=== PATIENT | female | born 1945 | race Caucasian/White ===

== ENCOUNTER 2019-03-27 18:06 | Emergency (ER) | payer MEDICARE, BC ==
[~2019-03-27] VITALS: Ht 160 cm; Wt 62.1 kg
[~2019-03-27 18:06] MED LIST: BUPR75TA3; ESCI10TA; MEMA5TAB
[2019-03-27 18:23] VITALS: BP 144/78
[2019-03-27] MEDS ORDERED: LORA-259 PO (18:35)
[2019-03-27] MEDS ORDERED: MIRT30TA PO (18:35)
[2019-03-27] MEDS ORDERED: ASPI-605 PO (18:35)
[2019-03-27] MEDS ORDERED: QUET25TA PO (18:35)
[2019-03-27] MEDS ORDERED: TRAZ-182 PO (18:35)
[2019-03-27] MEDS ORDERED: LISI10TA5 PO (18:35)
--- NOTE | 2019-03-27 19:10 | NUR ---
Patient discharged to home in stable condition. Written and verbal after care instructions given. Patient verbalizes understanding of instruction.
== END 2019-03-27 19:14 | disposition home or self-care (01) ==
LOC: ER 18:06
DX: G30.9 Alzheimer's disease, unspecified (principal); F02.80 Dementia in other diseases classified elsewhere, unspecified severity, without behavioral disturbance, psychotic disturbance, mood disturbance, and anxiety; R45.1 Restlessness and agitation; Z98.890 Other specified postprocedural states; Z88.0 Allergy status to penicillin; Z79.82 Long term (current) use of aspirin

== ENCOUNTER 2019-07-31 19:08 | Emergency (ER) | payer MEDICARE, BC ==
[~2019-07-31] VITALS: Ht 160 cm; Wt 54.4 kg
[~2019-07-31 19:08] MED LIST changes: +ASPI-605 PO; -BUPR75TA3; -ESCI10TA; +LISI10TA5 PO; +LORA-259 PO; -MEMA5TAB; +MIRT30TA PO; +QUET25TA PO; +TRAZ-182 PO
[2019-07-31 19:14] VITALS: BP 171/87
[2019-07-31] MEDS ORDERED: ACETAMINOPHEN ES 500 MG TABLET PO ONE (20:30)
[2019-07-31] MEDS ORDERED: BACI/NEOM/POLY B OINT PKT 1 UDPKT PACKET TP ONE (20:30)
[2019-07-31] MEDS ORDERED: LIDOCAINE HCL/PF 1% 30 ML VIAL TP ONE (20:30)
[2019-07-31] MEDS ORDERED: TDAP [DIPH/PERTUSSIS/TET] 0.5 ML VIAL IM ONE ×2 (20:30→21:10)
[2019-07-31] MEDS ORDERED: LIDOCAINE HCL/MPF 1% 30 ML VIAL IJ ONE (20:44)
[2019-07-31] MEDS ORDERED: ACETAMINOPHEN ES 500 MG TABLET ONE (21:10)
[2019-07-31] MEDS ORDERED: ACETAMINOPHEN 650 MG/20.3 ML UDC ONE (21:16)
[2019-08-01] MEDS ORDERED: QUET100T PO (14:26)
[2019-08-01] MEDS ORDERED: DIVA500T2 PO (14:26)
== END 2019-07-31 21:51 | disposition home or self-care (01) ==
LOC: ER 19:15
DX: S62.635B Displaced fracture of distal phalanx of left ring finger, initial encounter for open fracture (principal); S70.02XA Contusion of left hip, initial encounter; I10 Essential (primary) hypertension; G30.9 Alzheimer's disease, unspecified; Z88.0 Allergy status to penicillin; Z79.899 Other long term (current) drug therapy; Z79.82 Long term (current) use of aspirin; W18.39XA Other fall on same level, initial encounter; Y93.89 Activity, other specified; Y92.89 Other specified places as the place of occurrence of the external cause; Y99.8 Other external cause status
CPT/HCPCS: 29130; 90471; 90715; 99283; A6403; J3490 ×2; 73140-TC; 73502

== ENCOUNTER 2019-08-01 12:07 | Inpatient (IN) | payer MEDICARE, BC ==
[~2019-08-01] VITALS: Ht 160 cm; Wt 51.3 kg
--- NOTE | 2019-08-01 12:21 | NUR ---
PARKER RA 102 From Home Syncope,N/V "was sitting on cough said eyes rolled back. On arrivel she was vomiting-gave 4mg zofran; PT IS AWAKE, ALERT, DENIES PAIN/DISCOMFRT, PT ON MONITOR, VSS, NAD NOTED. PENDING MD GUZMAN
[2019-08-01] MEDS ORDERED: IV NS 0.9% 1,000 ML BAG IV ONE (13:00)
[2019-08-01 13:11] LABS: BASOPHILS % (AUTO) 0.4 % (0.0-2.0); EOSINOPHILS % (AUTO) 0.5 % (0.0-6.0); HEMATOCRIT 36 % (33-45); HEMOGLOBIN 11.9 g/dL (11.5-14.8); LYMPHOCYTES # (AUTO) 0.8 /CMM (0.8-4.8); LYMPHOCYTES % (AUTO) 9.8 % (20.0-44.0); MEAN CORPUSCULAR HGB CONC 33 g/dl (31.0-36.0); MEAN CORPUSCULAR VOLUME 95 fL (82-100); MONOCYTES # (AUTO) 0.5 /CMM (0.1-1.30); MONOCYTES % (AUTO) 6.4 % (2.0-12.0); NEUTROPHILS % (AUTO) 82.9 % (43.0-81.0); PLATELET COUNT (AUTO) 213 /CMM (150-450); RED BLOOD CELL COUNT(AUTO) 3.77 MIL/uL (4.0-5.2); WHITE BLOOD COUNT (AUTO) 8.5 K/uL (4.3-11.0)
[2019-08-01 13:19] LABS: CALCIUM, SERUM 8.6 mg/dL (8.5-10.1); CARBON DIOXIDE 30 mmol/L (21-32); CHLORIDE 109 mmol/L (98-107); CREATININE 0.8 mg/dL (0.6-1.3); GLUCOSE 90 mg/dL (74-106); POTASSIUM 3.9 mmol/L (3.5-5.1); SODIUM SERUM 146 mmol/L (136-145); UREA NITROGEN, BLOOD 15 mg/dL (7-18)
[2019-08-01 13:24] LABS: ALANINE AMINOTRANSFERASE 16 U/L (12-78); ALBUMIN 3.4 g/dL (3.4-5.0); ALKALINE PHOSPHATASE 70 U/L (46-116); ASPARTATE AMINOTRANSFERASE 18 U/L (15-37); BILIRUBIN,DIRECT 0.2 mg/dL (0.0-0.2); BILIRUBIN,TOTAL 0.7 mg/dL (0.2-1.0); TOTAL PROTEIN, SERUM 6.6 g/dL (6.4-8.2)
--- NOTE | 2019-08-01 13:39 | NUR ---
[employer] JUDGE PAGED
[2019-08-01] MEDS ORDERED: IV NS 0.9% 1,000 ML IV PRN (13:54)
[2019-08-01] MEDS ORDERED: MAGNESIUM HYDROXIDE 30 ML UDC PO PRN (14:00)
[2019-08-01] MEDS ORDERED: MORPHINE SULFATE INJ 2 MG/ML DISP.SYRIN IV PRN (14:00)
[2019-08-01] MEDS ORDERED: HYDROCODONE/APAP 5/325MG 1 EACH TABLET PO PRN (14:00)
[2019-08-01] MEDS ORDERED: ONDANSETRON HCL/PF 4 MG/2 ML VIAL IVP PRN (14:00)
[2019-08-01] MEDS ORDERED: TEMAZEPAM 15 MG CAPSULE PO PRN (14:00)
[2019-08-01] MEDS ORDERED: MAG HYDROX/AL HYDROX/SIMETH 30 ML UDC PO PRN (14:00)
[2019-08-01] MEDS ORDERED: ACETAMINOPHEN 325 MG TABLET PO PRN (14:00)
--- NOTE | 2019-08-01 14:22 | NUR ---
report given to dilma payne for rosanne pt will be transported v ia acls prtocol to [address] [place] [address]
[2019-08-01] MEDS ORDERED: QUET100T PO (14:26)
[2019-08-01] MEDS ORDERED: DIVA500T2 PO (14:26)
[2019-08-01 15:49] VITALS: BP 136/75
[2019-08-01 16:00] VITALS: BP 136/75
--- NOTE | 2019-08-01 16:00 | NUR ---
RAILCAR BRAKE OPERATOR NOTES PATIENT ADMITTED FROM ER FEMALE 73 Y/OLD ON TELE DX OF SYNCOPE. TELE MONITOR ON HR 96, NO ACUTE RESPIRATORY DISTRESS. PATIENT A/O X1 CONFUSED DEFENDING, ANXIOUS, UNABLE TO VERBALIZE SELF. NEXT TO THE BED. PATIENT WAS REFUSED PAIN AT THIS TIME, AND GET IRRITABLE EASILY, AMBULATORY WALKING AROUND. IV ACCESS ON LEFT AC AREA, AND RIGHT HAND INTACT. SKIN ASSESSMENT DONE INTACT, PATIENT CONTINENT ASSIST BATHROOM. PATIENT HAS A WOUND ON LEFT RING FINGER, BECAUSE OF IRRITABLE CONDITION UNABLE TO TAKE A PICTURE. BELONGING AND CONTRABAND CHECKED. V/S TAKEN BP-136/75, P-72, R-18, T-98.2, O2- 98 ROOM AIR. TIMMY DNP AWARE OF NEW PATIENT, AND MEDICATION.
--- NOTE | 2019-08-01 17:10 | NUR ---
RN NOTES PATIENT WAS VERY ANXIOUS, PARANOID, HARD TO FOLLOW DIRECTION, WONDERS OTHER PATIENTS ROOM, LOUD. NOTIFIED TIMMY AND GET ORDER ATIVAN 0.5 MG/ML IV PUSH BID PRN, ORDER TAKEN AND CARRIED OUT.
[2019-08-01] MEDS: QUETIAPINE FUMARATE 25 MG TABLET PO SCH (17:23)
--- NOTE | 2019-08-01 17:23 | NUR ---
rn notes administered Ativan 0.5 mg /ml iv push for anxiety. paranoia, yelling, hard to follow direction, v/s taken bp-136/75, p-72, continued monitoring, also administered scheduled medication as prescribed. next to the bed.
[2019-08-01] MEDS ORDERED: LORAZEPAM 1 MG TABLET PO PRN (17:30)
[2019-08-01] MEDS ORDERED: LORAZEPAM INJ 2 MG/ML VIAL IV PRN (17:30)
[2019-08-01 17:51] LABS: THYROID STIMULATING HORMONE 0.662 uIU/mL (0.358-3.74)
--- NOTE | 2019-08-01 18:30 | NUR ---
RN NOTES PATIENT IN THE SLEEPING, MEDICATION WERE ADMINISTERED FOR ANXIETY EFFECTIVE, INFUSING NS AT 75 ML/HR ON RIGHT HAND INTACT. PATIENT TURN AND REPOSTION SELF IN THE BED, NEXT TO THE BED. ENDORSED ONCOMING NURSE FOLLOW PLAN OF CARE.
[2019-08-01 20:00] VITALS: BP 129/109
--- NOTE | 2019-08-01 20:03 | NUR ---
ARROW POINT ATTACHER OPENING NOTES RECEIVED PT IN BED, AWAKE ALERT ORIENTED X2. BREATHING EVEN AND UNLABORED ON ROOM AIR. BASEBALL INSPECTOR IN PLACE NO COMPLAINT OF PAIN OR DISCOMFORT AT THIS TIME. IV ACCESS ON THE LAC #18 AND R HAND #22G. BED IN LOWEST LOCKED POSITION, CALL LIGHT WITHIN REACH AT ALL TIMES. WILL CONTINUE TO MONITOR FREQUENTLY
[2019-08-02] VITALS: BP 138/80
[2019-08-02 04:00] VITALS: BP 121/67
--- NOTE | 2019-08-02 06:06 | NUR ---
FUNERAL HOME ASSOCIATE CLOSING NOTES PT REMAINS IN BED, SLEEPING, EASILY AROUSED TO NAME CALL. BREATHING EVEN AND UNLABORED ON ROOM AIR. SUPERVISOR PLATE FORMING IN PLACE IN NO APPARENT PAIN OR DISCOMFORT AT THIS TIME. IV ACCESS ON THE LAC #18 AND R HAND #22G. BED IN LOWEST LOCKED POSITION, CALL LIGHT WITHIN REACH AT ALL TIMES. WILL ENDORSE TO DAY NURSE FOR DESHAUN
[2019-08-02 06:17] LABS: BASOPHILS % (AUTO) 0.5 % (0.0-2.0); HEMATOCRIT 32 % (33-45); LYMPHOCYTES # (AUTO) 1.4 /CMM (0.8-4.8); LYMPHOCYTES % (AUTO) 24.9 % (20.0-44.0); MEAN CORPUSCULAR HGB CONC 34 g/dl (31.0-36.0); MEAN CORPUSCULAR VOLUME 94 fL (82-100); MONOCYTES # (AUTO) 0.5 /CMM (0.1-1.30); MONOCYTES % (AUTO) 8.7 % (2.0-12.0); NEUTROPHILS # (AUTO) 3.7 /CMM (1.8-8.9); NEUTROPHILS % (AUTO) 63.9 % (43.0-81.0); PLATELET COUNT (AUTO) 214 /CMM (150-450); RED BLOOD CELL COUNT(AUTO) 3.41 MIL/uL (4.0-5.2); WHITE BLOOD COUNT (AUTO) 5.8 K/uL (4.3-11.0)
[2019-08-02 06:49] LABS: THYROID STIMULATING HORMONE 0.806 uIU/mL (0.358-3.74)
[2019-08-02 06:52] LABS: CALCIUM, SERUM 8.2 mg/dL (8.5-10.1); CREATININE 0.6 mg/dL (0.6-1.3); MAGNESIUM 2.1 mg/dL (1.8-2.4); PHOSPHORUS 3.4 mg/dL (2.5-4.9); POTASSIUM 3.6 mmol/L (3.5-5.1)
--- NOTE | 2019-08-02 07:20 | NUR ---
RN OPENING NOTES PT IS ASLEEP IN BED. RECEIVED REPORT FROM SUPERVISOR SAWING AND ASSEMBLY RN FOR CONTINUATION OF CARE. PT HAS NS RUNNING AT 75 ML/HR IN LEFT HAND. PT IS CONFUSED ACCORDING TO REPORT. BED IS LOCKED AND IN LOWEST POSITION WITH BED ALARM ON. WILL CONTINUE TO MONITOR.
[2019-08-02 08:00] VITALS: BP 135/76
[2019-08-02] MEDS ORDERED: MIRTAZAPINE 15 MG TABLET PO SCH (09:00)
[2019-08-02] MEDS ORDERED: ASPIRIN EC 81 MG TABLET.DR PO SCH (09:00)
[2019-08-02] MEDS: QUETIAPINE FUMARATE 25 MG TABLET PO SCH (09:37)
[2019-08-02] MEDS ORDERED: LORAZEPAM INJ 2 MG/ML VIAL IV ONE (11:00)
--- NOTE | 2019-08-02 12:21 | NUR ---
RN D/C NOTES PT DISCHARGED PAPERWORK GIVEN TO SPOUSE. IV REMOVED AND PT DENIED ANY PAIN OR SOB. REFUSED PHOTOS OR ASSESSMENT OF SKIN SAID HER SKIN IS INTACT. PT CHANGED BACK INTO HER REGULAR CLOTHES WITH THE ASSIST OF SAVANAH RONDON OF DR. MAGDALENO OFFICE GIVEN TO SPOUSE FOR FOLLOW UP. Addendum: 08/02/19 at 1224 by BELLA JUSTIN RN PT TAKEN BY PRIVATE CAR.
== END 2019-08-02 12:20 | disposition home or self-care (01) | DRG 73 ==
LOC: ER 12:08 → TELE 14:08 → MED 08-02 10:31
PROVIDERS: ADMIT Nurse Practitioner Acute Care; ATTEND Nurse Practitioner Acute Care
DX: G90.8 Other disorders of autonomic nervous system (principal); G93.41 Metabolic encephalopathy; G93.40 Encephalopathy, unspecified; E87.0 Hyperosmolality and hypernatremia; F02.80 Dementia in other diseases classified elsewhere, unspecified severity, without behavioral disturbance, psychotic disturbance, mood disturbance, and anxiety; Z79.899 Other long term (current) drug therapy; G30.9 Alzheimer's disease, unspecified; E86.0 Dehydration; I10 Essential (primary) hypertension; F41.9 Anxiety disorder, unspecified; Z79.82 Long term (current) use of aspirin; Z87.891 Personal history of nicotine dependence; Z88.0 Allergy status to penicillin; S62.635A Displaced fracture of distal phalanx of left ring finger, initial encounter for closed fracture; X58.XXXA Exposure to other specified factors, initial encounter; Y92.9 Unspecified place or not applicable
CPT/HCPCS: 36415; 70450-TC; 71045-TC; 73140-TC; 73502; 80048-TC; 80061-TC; 80076-TC; 80164-TC; 82728-TC; 82962-TC; 83540-TC; 83735-TC; 84100-TC; 84439-TC; 84443-TC; 84484-TC; 85025-TC; 85730-TC; 87081-TC; 93307-TC; 97116-TC; 97530-TC; G0378; J2060; J7030

== ENCOUNTER 2021-07-09 05:30 | Emergency (ER) | payer MEDICARE, BC ==
[~2021-07-09] VITALS: Ht 157.5 cm; Wt 59.0 kg
[~2021-07-09 05:30] MED LIST changes: +DIVA500T2 PO; +LISI10TA29 PO; -LISI10TA5 PO; +MIRT-119 PO; -MIRT30TA PO; +QUET100T PO; -TRAZ-182 PO
--- NOTE | 2021-07-09 05:50 | NUR ---
PT BIBRA 99 FROM HOME FOR C/O HEAD LACERATION S/P SLIP AND FALL. UNKNOWN KO. PT ALERT ORIENTED X1.
--- NOTE | 2021-07-09 06:18 | NUR ---
PT GOING TO CT.
[2021-07-09] MEDS ORDERED: TDAP [DIPH/PERTUSSIS/TET] 0.5 ML VIAL IM ONE ×2 (06:22→06:30)
--- NOTE | 2021-07-09 06:25 | NUR ---
PT BACK FROM CT.
[2021-07-09 07:46] VITALS: BP 117/52
== END 2021-07-09 07:46 | disposition home or self-care (01) ==
LOC: ER 05:32
DX: S01.01XA Laceration without foreign body of scalp, initial encounter (principal); R51.9 Headache, unspecified; F03.90 Unspecified dementia, unspecified severity, without behavioral disturbance, psychotic disturbance, mood disturbance, and anxiety; I10 Essential (primary) hypertension; Z98.890 Other specified postprocedural states; Z88.0 Allergy status to penicillin; Z79.82 Long term (current) use of aspirin; Z79.899 Other long term (current) drug therapy; W01.0XXA Fall on same level from slipping, tripping and stumbling without subsequent striking against object, initial encounter; Y93.89 Activity, other specified; Y92.89 Other specified places as the place of occurrence of the external cause; Y99.8 Other external cause status
CPT/HCPCS: 70450-TC; 90715

== ENCOUNTER 2021-09-16 01:48 | Inpatient (IN) | payer MEDICARE, BC ==
[~2021-09-16] VITALS: Ht 167.6 cm; Wt 74.8 kg
--- NOTE | 2021-09-16 02:05 | NUR ---
BIBRA 102 FROM HOME C/O ABDOMINAL PAIN X2 DAYS -N/V. PT CHANGED INTO A GOWN AND PLACED ON THE MONITOR ALL VITALS STABLE. MD WAS AT BEDSIDE FOR EVAL.
[2021-09-16 02:23] LABS: BILIRUBIN,URINE Negative (NEGATIVE); COLOR,URINE YELLOW (YELLOW); LEUKOCYTE ESTERASE ,URINE Negative (NEGATIVE); NITRITE, URINE Negative (NEGATIVE); PH,URINE 5.5 (5.0-8.0); PROTEIN,URINE 30 mg/dl (NEGATIVE); UGLUCOSE Negative (NEGATIVE); UROBILINOGEN,URINE 0.2 EU/dL (0.2)
[2021-09-16 02:55] LABS: BACTERIA,URINE Few /HPF (None Seen); CALCIUM OXALATE CRYSTALS,UR Few /HPF (None Seen); HYALINE CASTS, URINE Few /LPF (None Seen); SQUAMOUS EPITHELIAL CELL,UR Many /HPF (None Seen)
[2021-09-16 02:56] LABS: MUCUS,URINE Moderate /LPF (None Seen)
--- NOTE | 2021-09-16 03:00 | NUR ---
PT TAKEN TO AND RETURNED FROM CT
[2021-09-16 03:19] LABS: PLATELET COUNT (AUTO) 186 K/uL (150-450)
[2021-09-16 03:44] LABS: CALCIUM, SERUM 8.6 mg/dL (8.5-10.1); CARBON DIOXIDE 24 mmol/L (21-32); CHLORIDE 110 mmol/L (98-107); CREATININE 0.9 mg/dL (0.6-1.3); GLUCOSE 95 mg/dL (74-106); POTASSIUM 3.8 mmol/L (3.5-5.1); SODIUM SERUM 147 mmol/L (136-145); UREA NITROGEN, BLOOD 18 mg/dL (7-18)
[2021-09-16 03:46] LABS: WHITE BLOOD COUNT (AUTO) 6.9 K/uL (4.3-11.0)
[2021-09-16 03:47] LABS: BASOPHILS % (AUTO) 0.4 % (0.0-2.0); EOSINOPHILS % (AUTO) 0.9 % (0.0-6.0); HEMATOCRIT 38 % (33-45); HEMOGLOBIN 12.9 g/dL (11.5-14.8); LYMPHOCYTES # (AUTO) 1.2 K/uL (0.8-4.8); LYMPHOCYTES % (AUTO) 17.7 % (20.0-44.0); MEAN CORPUSCULAR HGB CONC 34 g/dl (31.0-36.0); MEAN CORPUSCULAR VOLUME 95 fL (82-100); MONOCYTES % (AUTO) 8.6 % (2.0-12.0); NEUTROPHILS % (AUTO) 72.4 % (43.0-81.0); RED BLOOD CELL COUNT(AUTO) 4.01 MIL/uL (4.0-5.2)
[2021-09-16 03:48] LABS: MONOCYTES # (AUTO) 0.6 K/uL (0.1-1.30)
[2021-09-16 03:50] LABS: ALANINE AMINOTRANSFERASE 24 U/L (12-78); ALBUMIN 3.2 g/dL (3.4-5.0); ALKALINE PHOSPHATASE 59 U/L (46-116); ASPARTATE AMINOTRANSFERASE 25 U/L (15-37); BILIRUBIN,DIRECT 0.1 mg/dL (0.0-0.2); BILIRUBIN,TOTAL 0.3 mg/dL (0.2-1.0); LIPASE 134 U/L (73-393); TOTAL PROTEIN, SERUM 6.5 g/dL (6.4-8.2)
[2021-09-16 04:00] LABS: OCCULT BLOOD STOOL POSITIVE (NEGATIVE)
--- NOTE | 2021-09-16 04:48 | NUR ---
[facility]SA SWAB COLLECTED AND SENT TO LAB. PATIENT'S BELONGINGS LIST DONE.
--- NOTE | 2021-09-16 04:56 | NUR ---
COVID SWAB DONE AND SENT TO LAB
--- NOTE | 2021-09-16 05:33 | NUR ---
PT SLEEPING COMOFRTABLY BREATHING EVEN AND UNLABORED EASILY AROUSABLE. ON MONITOR AND ALL VSS.
--- NOTE | 2021-09-16 05:58 | NUR ---
CALLED NURSING SUP FOR BED
--- NOTE | 2021-09-16 08:16 | NUR ---
ROOM 322-2
--- NOTE | 2021-09-16 08:40 | NUR ---
RN NOTES PATIENT TRANSFERRED TO UNIT AT ROOM 322-2 VIA [place], ACCOMPANIED BY 2 ER NURSES.
--- NOTE | 2021-09-16 08:45 | NUR ---
RN NOTES ADMITTED THIS 75-YEAR-OLD FEMALE FROM HOME UNDER THE SERVICES OF BRADY CARNES NP; ADMITTING DIAGNOSIS OF ACUTE COLITIS AND PAST MEDICAL HX OF ADVANCED ALZHEIMER'S DISEASE, DEMENTIA, HTN, DEPRESSION, AND ANXIETY. PATIENT IS A/O X1, CONFUSED, ABLE TO BE REDIRECTED. BREATHING EVEN AND UNLABORED ON ROOM AIR, NO ACUTE DISTRESS. ADMITTED MS PATIENT. IV LINE ON LAC #20 INTACT AND PATENT. IVF AND IV ATB INITIATED, TOLERATED BY PATIENT. ASSISTED W/ MEAL IN AM. ORIENTED PATIENT TO ROOM AND USE OF CALL LIGHT BUTTON FOR STAFF ASSISTANCE. WILL CONTINUE TO MONITOR.
--- NOTE | 2021-09-16 10:50 | NUR ---
RN NOTES BRADY CARNES NP, AT BEDSIDE TO SEE THE PATIENT. OSCAR, FAMILY, AT BEDSIDE WELL.
[2021-09-16] MEDS ORDERED: ONDANSETRON HCL/PF 4 MG/2 ML VIAL IVP PRN (11:00)
[2021-09-16] MEDS ORDERED: LEVOFLOXACIN 500 MG /D5W 100ML 500 MG in PREMIX 1 EA IV SCH (11:00)
[2021-09-16] MEDS ORDERED: IV NS 0.9% 1,000 ML IV PRN (11:00)
[2021-09-16] MEDS ORDERED: MORPHINE SULFATE INJ 2 MG/ML DISP.SYRIN IV PRN (11:00)
[2021-09-16] MEDS ORDERED: Z GUARD REMEDY 2 OZ OINT TP PRN (11:00)
[2021-09-16] MEDS ORDERED: ENOXAPARIN SODIUM 40 MG/0.4 ML DISP.SYRIN SQ SCH (11:00)
[2021-09-16] MEDS ORDERED: IV D5W 1,000 ML IV PRN (11:30)
[2021-09-16] MEDS ORDERED: IV NS 0.9% 1,000 ML IV ONE (11:30)
[2021-09-16 12:00] VITALS: BP 136/72
[2021-09-16] MEDS: DIVALPROEX SODIUM 125 MG TABLET.DR PO SCH ×2 (12:02→16:42)
[2021-09-16] MEDS: ASPIRIN EC 81 MG TABLET.DR PO SCH (12:03)
[2021-09-16] MEDS: QUETIAPINE FUMARATE 25 MG TABLET PO SCH (12:03)
[2021-09-16] MEDS: MIRTAZAPINE 15 MG TABLET PO SCH (12:03)
[2021-09-16] MEDS: LISINOPRIL (10MG) 10 MG TABLET PO SCH (12:03)
[2021-09-16] MEDS: CEFTRIAXONE 1 G in IV D5W 50 ML IV SCH (12:04)
[2021-09-16] MEDS: METRONIDAZOLE 500MG/ NS 100ML 500 MG in PREMIX 1 EA IV SCH ×2 (13:21→21:07)
--- NOTE | 2021-09-16 14:13 | NUR ---
RN NOTES OSCAR, , AT BEDSIDE AND MADE AWARE OF PLAN OF CARE FOR PATIENT.
[2021-09-16 16:00] VITALS: BP 150/68
--- NOTE | 2021-09-16 19:00 | NUR ---
RN NOTES PATIENT RESTING IN BED, EYES CLOSED, ABLE TO BE AWAKENED. NOT IN ACUTE DISTRESS. BREATHING EVEN AND UNLABORED, TOLERATING ROOM AIR. A/O X1, CONFUSED, REDIRECTABLE. IV LINE INTACT AND PATENT, IVF INFUSING WELL. ASSISTED W/ MEALS DURING THE DAY. SAFETY MEASURES MAINTAINED. WILL ENDORSE TO AMMONIA REFRIGERATION WORKER RN FOR DESHAUN.
--- NOTE | 2021-09-16 19:24 | NUR ---
RN NOTES PATIENT RESTING IN BED, EYES CLOSED, ABLE TO BE AWAKENED. NOT IN ACUTE DISTRESS. BREATHING EVEN AND UNLABORED, TOLERATING ROOM AIR. A/O X1, CONFUSED, REDIRECTABLE. IV LINE INTACT AND PATENT, IVF INFUSING WELL. SAFETY MEASURES MAINTAINED. AT BEDSIDE. WILL CONTINUE TO MONITOR.
[2021-09-16 20:00] VITALS: BP 153/87
[2021-09-16] MEDS: QUETIAPINE FUMARATE 100 MG TABLET PO SCH (21:03)
[2021-09-17] MEDS: METRONIDAZOLE 500MG/ NS 100ML 500 MG in PREMIX 1 EA IV SCH (04:09)
--- NOTE | 2021-09-17 06:37 | NUR ---
RN NOTES PATIENT RESTING IN BED, EYES CLOSED, ABLE TO BE AWAKENED. NOT IN ACUTE DISTRESS. BREATHING EVEN AND UNLABORED, TOLERATING ROOM AIR. A/O X1, CONFUSED, REDIRECTABLE. IV LINE INTACT AND PATENT ON D5 @ 75ML/HR INFUSING WELL. SAFETY MEASURES MAINTAINED. PT DOES NOT HAVE A FEVER AT THIS TIME 98.3 F. WILL ENDORSE CARE TO DAY SHIFT NURSE.
[2021-09-17 06:54] LABS: BASOPHILS % (AUTO) 0.2 % (0.0-2.0); EOSINOPHILS % (AUTO) 0.2 % (0.0-6.0); HEMATOCRIT 36 % (33-45); HEMOGLOBIN 12.2 g/dL (11.5-14.8); LYMPHOCYTES # (AUTO) 1.7 K/uL (0.8-4.8); LYMPHOCYTES % (AUTO) 13.1 % (20.0-44.0); MEAN CORPUSCULAR HGB CONC 33 g/dl (31.0-36.0); MEAN CORPUSCULAR VOLUME 95 fL (82-100); MONOCYTES # (AUTO) 0.8 K/uL (0.1-1.30); MONOCYTES % (AUTO) 6.5 % (2.0-12.0); NEUTROPHILS # (AUTO) 10.3 K/uL (1.8-8.9); PLATELET COUNT (AUTO) 160 K/uL (150-450); RED BLOOD CELL COUNT(AUTO) 3.82 MIL/uL (4.0-5.2); WHITE BLOOD COUNT (AUTO) 12.8 K/uL (4.3-11.0)
[2021-09-17 07:15] LABS: CALCIUM, SERUM 7.7 mg/dL (8.5-10.1); CREATININE 0.6 mg/dL (0.6-1.3); MAGNESIUM 1.9 mg/dL (1.8-2.4); PHOSPHORUS 2.8 mg/dL (2.5-4.9); POTASSIUM 3.4 mmol/L (3.5-5.1)
[2021-09-17] MEDS: PANTOPRAZOLE 40 MG TABLET.DR PO SCH (07:37)
--- NOTE | 2021-09-17 07:38 | NUR ---
MS RN OPENING NOTES RECEIVED PATIENT IN BED, AWAKE, A&O X 1, NOTED WITH PERIODS OF CONFUSION. ON ROOM AIR TOLERATING WELL, NO SOB, NOT IN ANY FORM OF ACUTE DISTRESS NOTED. IV ACCESS ON LAC G#20 , PATENT AND FLUSHES WELL. NO S/SX OF PAIN NOTED. SAFETY PRECAUTIONS IN PLACE: BED ON LOWEST LOCKED POSITION. SIDE RAILS UP X 2, KEPT CALL LIGHT WITHIN EASY REACH. WILL CONTINUE TO MONITOR ACCORDINGLY.
[2021-09-17 08:00] VITALS: BP 124/57
[2021-09-17] MEDS: DIVALPROEX SODIUM 125 MG TABLET.DR PO SCH ×2 (08:07→16:04)
[2021-09-17] MEDS: MIRTAZAPINE 15 MG TABLET PO SCH (08:08)
[2021-09-17] MEDS: QUETIAPINE FUMARATE 25 MG TABLET PO SCH (08:08)
[2021-09-17] MEDS: LISINOPRIL (10MG) 10 MG TABLET PO SCH (08:08)
[2021-09-17] MEDS: ASPIRIN EC 81 MG TABLET.DR PO SCH (08:08)
[2021-09-17] MEDS ORDERED: ENOXAPARIN SODIUM 40 MG/0.4 ML DISP.SYRIN SQ SCH (09:00)
[2021-09-17] MEDS ORDERED: POTASSIUM CHLORIDE 20 MEQ TAB.PRT.SR PO SCH (09:30)
[2021-09-17 10:00] VITALS: BP 124/57
[2021-09-17] MEDS: CEFTRIAXONE 1 G in IV D5W 50 ML IV SCH (10:11)
[2021-09-17] MEDS: IV D5/0.45 NACL 1,000 ML IV SCH (11:51)
[2021-09-17] MEDS: METRONIDAZOLE 500 MG TABLET PO SCH ×2 (12:12→21:03)
[2021-09-17] MEDS: ACETAMINOPHEN 325 MG TABLET PO PRN (13:06)
[2021-09-17] MEDS: LORAZEPAM 1 MG TABLET PO PRN ×2 (13:12→16:56)
--- NOTE | 2021-09-17 13:20 | NUR ---
RN NOTES PATIENT NOTED WITH CONFUSION AND STARTED GETTING HYSTERICAL. PATIENT WAS SHOUTING AT AND TRIED KICKING NURSES WHILE GETTING OUT OF BED. TRIED TO GIVE ATIVAN 5 MG TABLET BUT PATIENT SPIT IT OUT. INFORMED BRADY CARNES WITH ORDER MADE AND CARRIED OUT. ATIVAN 0.5 MG IM GIVEN ORDERED. WILL CONTINUE TO MONITOR.
[2021-09-17] MEDS ORDERED: LORAZEPAM INJ 2 MG/ML VIAL IM/IV ONE (13:30)
--- NOTE | 2021-09-17 14:16 | NUR ---
RN NOTES PATIENT STILL ACTING OUT, INFORMED BRADY CARNES, ORTIZ- PSYCH EVAL ORDERED.
[2021-09-17] MEDS ORDERED: diphenhydrAMINE HCL 50 MG/ML VIAL IM/IV ONE (15:00)
--- NOTE | 2021-09-17 18:23 | NUR ---
MS RN CLOSING NOTES PATIENT IN BED, ASLEEP,EASILY AWAKEN BY VERBAL AND TACTILE STIMULI. ON ROOM AIR TOLERATING WELL, NO SOB, NOT IN ANY FORM OF ACUTE DISTRESS NOTED. IV ACCESS ON RIGHT WRIST G#20 , PATENT AND INTACT, ONGOING IVF OD D5 1/2 NS AT 75CC/HR INFUSING WELL, NO S/SX OF INFILTRATION NOTED. NO S/SX OF PAIN NOTED. SAFETY PRECAUTIONS IN PLACE: BED ON LOWEST LOCKED POSITION. SIDE RAILS UP X 2, KEPT CALL LIGHT WITHIN EASY REACH. ALL NEEDS ATTENDED AND MET, DUE MEDS GIVEN ORDERED. WILL ENDORSE TO ONCOMING SHIFT FOR DESHAUN.
--- NOTE | 2021-09-17 19:40 | NUR ---
MS RN OPENING NOTES PATIENT SEEK AWAKE IN BED RESTING. PATIENT'S ALERT AND ORIENTED X1 AND IS CONFUSED. PATIENT'S STABLE ON ROOM AIR. IV ACCESS NOTED ON R WRIST GAUGE #20 WHICH IS INTACT, PATENT, AND FLUSHING WELL. PATIENT'S IN NO ACUTE DISTRESS AT THIS TIME. SAFETY MEASURES IN PLACE: BED LOCKED, BED ALARM ON, SIDE RAILS UP X3, CALL LIGHT WITHIN REACH OF THE PATIENT, AND A 1:1 SITTER AT BEDSIDE. WILL CONTINUE TO MONITOR PATIENT.
[2021-09-17 20:00] VITALS: BP 113/50
[2021-09-17] MEDS: QUETIAPINE FUMARATE 100 MG TABLET PO SCH (21:03)
[2021-09-18] MEDS: IV D5/0.45 NACL 1,000 ML IV SCH ×2 (02:12→15:01)
[2021-09-18] MEDS: METRONIDAZOLE 500 MG TABLET PO SCH ×3 (05:01→21:39)
[2021-09-18] MEDS: LORAZEPAM 1 MG TABLET PO PRN ×2 (05:01→19:46)
--- NOTE | 2021-09-18 05:01 | NUR ---
MS RN NOTES PATIENT C/O OF ANXIETY AT THIS TIME. PATIENT WAS GIVEN 1MG OF ATIVAN PO. WILL CONTINUE TO MONITOR THE PATIENT.
--- NOTE | 2021-09-18 06:53 | NUR ---
MS RN CLOSING NOTES PATIENT WAS SEEN SLEEPING IN BED. PATIENT'S ALERT AND ORIENTED X1 AND CONFUSED. PATIENT'S STABLE ON ROOM AIR. IV ACCESS NOTED ON R WRIST GAUGE #20 WHICH IS RUNNING D5 0.45% NS AT 75ML/HR. PATIENT'S IN NO ACUTE DISTRESS AT THIS TIME. SAFETY MEASURES IN PLACE: BED LOCKED, BED ALARM ON, SIDE RAILS UP X3, CALL LIGHT WITHIN REACH OF THE PATIENT, AND A 1:1 SITTER AT BEDSIDE. WILL ENDORSE CARE TO THE DAY SHIFT NURSE.
--- NOTE | 2021-09-18 06:54 | NUR ---
MS RN NOTES PATIENT REFUSED 0600 LAB DRAW DT WANTING TO SLEEP. LAB WILL REATTEMPT TO COLLECT LABS AT A LATER TIME TODAY.
--- NOTE | 2021-09-18 07:49 | NUR ---
RN OPENING NOTES Patient seen comfortably lying in bed, no SOB, no apparent distress noted, breathing even and unlabored. Call light left within reach, safety precautions in place, brakes locked, side rails up X 2, will monitor closely for any changes.
[2021-09-18 08:00] VITALS: BP 104/56
[2021-09-18] MEDS: LISINOPRIL (10MG) 10 MG TABLET PO SCH (09:00)
[2021-09-18] MEDS: QUETIAPINE FUMARATE 25 MG TABLET PO SCH (10:10)
[2021-09-18] MEDS: PANTOPRAZOLE 40 MG TABLET.DR PO SCH (10:10)
[2021-09-18] MEDS: ASPIRIN EC 81 MG TABLET.DR PO SCH (10:10)
[2021-09-18] MEDS: MIRTAZAPINE 15 MG TABLET PO SCH (10:10)
[2021-09-18] MEDS: DIVALPROEX SODIUM 125 MG TABLET.DR PO SCH ×2 (10:18→16:15)
[2021-09-18] MEDS: CEFTRIAXONE 1 G in IV D5W 50 ML IV SCH (11:36)
[2021-09-18 12:41] LABS: BASOPHILS % (AUTO) 0.4 % (0.0-2.0); EOSINOPHILS % (AUTO) 2.6 % (0.0-6.0); HEMATOCRIT 33 % (33-45); HEMOGLOBIN 11.3 g/dL (11.5-14.8); LYMPHOCYTES # (AUTO) 1.5 K/uL (0.8-4.8); LYMPHOCYTES % (AUTO) 18.4 % (20.0-44.0); MEAN CORPUSCULAR HGB CONC 34 g/dl (31.0-36.0); MEAN CORPUSCULAR VOLUME 95 fL (82-100); MONOCYTES # (AUTO) 0.5 K/uL (0.1-1.30); MONOCYTES % (AUTO) 6.1 % (2.0-12.0); NEUTROPHILS # (AUTO) 6.1 K/uL (1.8-8.9); NEUTROPHILS % (AUTO) 72.5 % (43.0-81.0); PLATELET COUNT (AUTO) 178 K/uL (150-450); WHITE BLOOD COUNT (AUTO) 8.4 K/uL (4.3-11.0)
[2021-09-18 12:52] LABS: CALCIUM, SERUM 7.7 mg/dL (8.5-10.1); CREATININE 0.6 mg/dL (0.6-1.3); MAGNESIUM 2.2 mg/dL (1.8-2.4); POTASSIUM 3.4 mmol/L (3.5-5.1)
[2021-09-18 16:00] VITALS: BP 119/66
[2021-09-18] MEDS ORDERED: POTASSIUM CHLORIDE 20 MEQ TAB.PRT.SR PO ONE (16:30)
--- NOTE | 2021-09-18 18:25 | NUR ---
RN CLOSING NOTES Patient in bed, AO X 1, with episodes of forgetfulness and confusion, reorientation provided as needed, no apparent distress noted, no SOB, respirations even and unlabored, no dizziness, no palpitations, denies any pain or discomfort. Due medications given per MD order, tolerating well. Aspiration precautions observed, frequent visual checks rendered, frequent repositioning done, all needs anticipated, kept clean and dry, call light left within reach, safety precautions in place, patient has a 1:1 sitter at bedside, brakes locked, side rails up X 2, will endorse to next shift for continuity of care.
[2021-09-18] MEDS: ACETAMINOPHEN 325 MG TABLET PO PRN (19:48)
--- NOTE | 2021-09-18 19:57 | NUR ---
RN OPENING NOTES PT AWAKE IN BED, VERBAL, CONFUSED, ANXIOUS, RESTLESS, AGITATED, YELLING OUT. UNABLE TO REDIRECT. SITTER IN ROOM FOR SAFETY. GIVEN ATIVAN 1MG PO ORDERED. MADE COMFORTABLE IN BED. SAFETY MEASURES IN PLACE. WILL CONT TO MONITOR.
[2021-09-18 20:52] VITALS: BP 131/68
[2021-09-18] MEDS ORDERED: HALOPERIDOL LACTATE INJ 5 MG/ML VIAL IM PRN (21:30)
[2021-09-18] MEDS: HALOPERIDOL 1 MG TABLET PO SCH (21:39)
[2021-09-19] MEDS: METRONIDAZOLE 500 MG TABLET PO SCH ×2 (05:29→12:12)
--- NOTE | 2021-09-19 06:55 | NUR ---
RN CLOSING NOTES PT RESTING IN BED, EASILY AROUSABLE TO STIMULI. VERBAL/CONFUSED/CALM AT THIS TIME. REORIENTATION PROVIDED. NO S/S OF PAIN NOTED. NO ACUTE EVENTS DURING THE NIGHT. SITTER AT BEDSIDE. ALL NEEDS ATTENDED TO. SAFETY MEASURES MAINTAINED.
--- NOTE | 2021-09-19 07:40 | NUR ---
RN OPENING NOTES Patient seen comfortably lying in bed, no apparent distress noted, respirations even and unlabored, no SOB, no grimacing noted. Call light left within reach, safety precautions in place, brakes locked, side rails up X 2, will monitor closely for any changes.
[2021-09-19] MEDS: ASPIRIN EC 81 MG TABLET.DR PO SCH (08:56)
[2021-09-19] MEDS: DIVALPROEX SODIUM 125 MG TABLET.DR PO SCH (08:56)
[2021-09-19] MEDS: MIRTAZAPINE 15 MG TABLET PO SCH (08:56)
[2021-09-19] MEDS: HALOPERIDOL 1 MG TABLET PO SCH ×2 (08:56→12:12)
[2021-09-19] MEDS: PANTOPRAZOLE 40 MG TABLET.DR PO SCH (08:56)
[2021-09-19 08:57] VITALS: BP 150/83
[2021-09-19] MEDS: LISINOPRIL (10MG) 10 MG TABLET PO SCH (08:57)
[2021-09-19 09:36] LABS: BASOPHILS % (AUTO) 0.5 % (0.0-2.0); HEMATOCRIT 36 % (33-45); HEMOGLOBIN 11.9 g/dL (11.5-14.8); LYMPHOCYTES # (AUTO) 1.3 K/uL (0.8-4.8); LYMPHOCYTES % (AUTO) 18.4 % (20.0-44.0); MEAN CORPUSCULAR HGB CONC 33 g/dl (31.0-36.0); MEAN CORPUSCULAR VOLUME 95 fL (82-100); MONOCYTES # (AUTO) 0.5 K/uL (0.1-1.30); NEUTROPHILS # (AUTO) 4.8 K/uL (1.8-8.9); NEUTROPHILS % (AUTO) 71.1 % (43.0-81.0); PLATELET COUNT (AUTO) 195 K/uL (150-450); RED BLOOD CELL COUNT(AUTO) 3.76 MIL/uL (4.0-5.2); WHITE BLOOD COUNT (AUTO) 6.8 K/uL (4.3-11.0)
[2021-09-19 09:48] LABS: CALCIUM, SERUM 7.8 mg/dL (8.5-10.1); CREATININE 0.8 mg/dL (0.6-1.3); MAGNESIUM 2.4 mg/dL (1.8-2.4); POTASSIUM 3.5 mmol/L (3.5-5.1)
[2021-09-19] MEDS ORDERED: CIPR-262 PO (10:48)
[2021-09-19] MEDS ORDERED: METR500T PO (10:48)
[2021-09-19] MEDS: CEFTRIAXONE 1 G in IV D5W 50 ML IV SCH (12:11)
[2021-09-19] MEDS: LORAZEPAM 1 MG TABLET PO PRN (12:50)
--- NOTE | 2021-09-19 13:15 | NUR ---
Patient to be discharged home today, no apparent distress noted, no nausea, no vomiting denies any pain or discomfort, abdominal bowel sound present in all quadrants, no grimacing when abdomen palpated. Patient and made aware of the situation, signed all discharge paperworks, all belongings taken, inventory list signed by . Health teaching provided to Qasim, verbalized understanding and gratitude. Skin assessment done prior to discharge, skin intact, warm to touch, no pallor or cyanosis noted. Peripheral IV removed prior to discharge and covered with dry dressing. Name wristband removed prior to discharge. RN and CLINICAL FELLOW assisted patient going to the hospital parking lot via wheelchair, left unit at 1300 , stable condition, exit care documents handed to .
== END 2021-09-19 13:05 | disposition home or self-care (01) | DRG 378 ==
LOC: ER 01:49 → MED 08:19
PROVIDERS: ADMIT Nurse Practitioner Family; ATTEND Nurse Practitioner Family
DX: K57.93 Diverticulitis of intestine, part unspecified, without perforation or abscess with bleeding (principal); N30.00 Acute cystitis without hematuria; E44.1 Mild protein-calorie malnutrition; E87.0 Hyperosmolality and hypernatremia; J98.11 Atelectasis; F02.80 Dementia in other diseases classified elsewhere, unspecified severity, without behavioral disturbance, psychotic disturbance, mood disturbance, and anxiety; K52.9 Noninfective gastroenteritis and colitis, unspecified; G30.9 Alzheimer's disease, unspecified; I10 Essential (primary) hypertension; Z20.822 Contact with and (suspected) exposure to COVID-19; Z88.0 Allergy status to penicillin; Z79.82 Long term (current) use of aspirin; Z79.899 Other long term (current) drug therapy; F41.9 Anxiety disorder, unspecified; F32.A Depression, unspecified; K44.9 Diaphragmatic hernia without obstruction or gangrene; I70.0 Atherosclerosis of aorta; F29 Unspecified psychosis not due to a substance or known physiological condition; F39 Unspecified mood [affective] disorder; M41.9 Scoliosis, unspecified; Z87.891 Personal history of nicotine dependence
CPT/HCPCS: 36415; 71045-TC; 80048-TC; 80061-TC; 80076-TC; 81001; 82272-TC; 83605-TC; 83690-TC; 83735-TC; 84100-TC; 84484-TC; 85025-TC; 87040-TC; 87081-TC; 87086-TC; A4216; C9803; G0378; J0696; J1200; J1630; J2060; J3490; J7030; J7060

== ENCOUNTER 2021-11-10 07:30 | Inpatient (IN) | payer MEDICARE, BC ==
[~2021-11-10] VITALS: Ht 160 cm; Wt 53.1 kg
[~2021-11-10 07:30] MED LIST changes: +CIPR-262 PO; +METR500T PO
--- NOTE | 2021-11-10 07:30 | NUR ---
BIB RA 102 FROM HOME, FAMILY CALLED STATED PT IS MORE ALTERED THAN NORMAL. LAST TIME FAMILY KNEW PT MENTAL STATUS TO BE WITHIN BASELINE WAS AT 11 PM THE NIGHT PRIOR. GLUCOSE WAS 94. PT IS A&OX0 BUT IS ALERT TO STIMULI. VITALS ARE WITHIN NORMAL LIMITS. PT BREATHING IS EVEN AND NORMAL. WILL CONTINUE TO MONITOR.
--- NOTE | 2021-11-10 07:37 | NUR ---
IV ESTABLISHED R WTIST 20G. LABS WERE DRAWN AND COLLECTED BY LAB AT BEDSIDE.
--- NOTE | 2021-11-10 07:54 | NUR ---
Urine sample obtained and sent to lab
[2021-11-10 07:57] LABS: BASOPHILS % (AUTO) 0.4 % (0.0-2.0); EOSINOPHILS % (AUTO) 1.8 % (0.0-6.0); HEMATOCRIT 40 % (33-45); HEMOGLOBIN 13.2 g/dL (11.5-14.8); LYMPHOCYTES # (AUTO) 2.8 K/uL (0.8-4.8); LYMPHOCYTES % (AUTO) 54.1 % (20.0-44.0); MEAN CORPUSCULAR HGB CONC 34 g/dl (31.0-36.0); MEAN CORPUSCULAR VOLUME 96 fL (82-100); MONOCYTES # (AUTO) 0.3 K/uL (0.1-1.30); MONOCYTES % (AUTO) 6.6 % (2.0-12.0); NEUTROPHILS # (AUTO) 1.9 K/uL (1.8-8.9); NEUTROPHILS % (AUTO) 37.1 % (43.0-81.0); PLATELET COUNT (AUTO) 210 K/uL (150-450); WHITE BLOOD COUNT (AUTO) 5.2 K/uL (4.3-11.0)
[2021-11-10] MEDS ORDERED: IV NS 0.9% 500 ML BAG IV ONE (08:00)
--- NOTE | 2021-11-10 08:09 | NUR ---
PT TAKEN TO CT
--- NOTE | 2021-11-10 08:41 | NUR ---
PT AT BEDSIDE
[2021-11-10 08:59] LABS: BILIRUBIN,URINE NEGATIVE (NEGATIVE); COLOR,URINE YELLOW (YELLOW); LEUKOCYTE ESTERASE ,URINE NEGATIVE (NEGATIVE); NITRITE, URINE NEGATIVE (NEGATIVE); PH,URINE 5.5 (5.0-8.0); PROTEIN,URINE TRACE mg/dl (NEGATIVE); UGLUCOSE NEGATIVE (NEGATIVE); UROBILINOGEN,URINE 0.2 EU/dL (0.2)
--- NOTE | 2021-11-10 09:03 | NUR ---
COVID SAMPLE OBTAINED AND SENT TO LAB
--- NOTE | 2021-11-10 09:05 | NUR ---
REQUESTED A BED FROM NURSING SUP, ADVISED TO CALL BACK AFTER MEETING.
--- NOTE | 2021-11-10 10:47 | NUR ---
LEFT A VOICEMAIL FOR BED REQUEST FOLLOW UP.
[2021-11-10 11:09] LABS: ALANINE AMINOTRANSFERASE 24 U/L (12-78); ALBUMIN 3.1 g/dL (3.4-5.0); ALKALINE PHOSPHATASE 50 U/L (46-116); ASPARTATE AMINOTRANSFERASE 25 U/L (15-37); BILIRUBIN,DIRECT 0.1 mg/dL (0.0-0.2); BILIRUBIN,TOTAL 0.4 mg/dL (0.2-1.0); CALCIUM, SERUM 8.1 mg/dL (8.5-10.1); CARBON DIOXIDE 24 mmol/L (21-32); CHLORIDE 109 mmol/L (98-107); CREATININE 0.9 mg/dL (0.6-1.3); GLUCOSE 83 mg/dL (74-106); POTASSIUM 3.8 mmol/L (3.5-5.1); SODIUM SERUM 142 mmol/L (136-145); TOTAL PROTEIN, SERUM 6.5 g/dL (6.4-8.2); UREA NITROGEN, BLOOD 19 mg/dL (7-18)
[2021-11-10 11:35] LABS: RBC,URINE 0-2 /HPF (0-2)
[2021-11-10 11:36] LABS: BACTERIA,URINE Few /HPF (None Seen); SQUAMOUS EPITHELIAL CELL,UR Few /HPF (None Seen); WBC,URINE 0-2 /HPF (0-3)
--- NOTE | 2021-11-10 11:55 | NUR ---
REPORT GIVEN TO NURSE SEBASTIAN FOR DESHAUN
--- NOTE | 2021-11-10 12:06 | NUR ---
PT TRANSPORTED ACCOMPANIED BY RN.
--- NOTE | 2021-11-10 12:10 | NUR ---
RN NOTE PATIENT RECEIVED FROM ER, TRANSFERRED FROM [facility] TO BED, BODY CHECK DONE SKIN IS INTACT, PATIENT AWAKE AT THIS TIME. WILL CONTINUE WITH BEDSIDE CARE AND ADMISSION.
--- NOTE | 2021-11-10 12:15 | NUR ---
RN NOTE PATIENT SEIZURE EPISODE THAT LASTED FOR 1 MIN, NO S/S OF ASPIRATION, PATIENT IS ASLEEP AT THIS TIME, DR. PÉREZ MADE AWARE. Addendum: 11/10/21 at 1241 by JAZ LYN RN RN NOTE PATIENT SEIZURE EPISODE THAT LASTED FOR 1 MIN, NO S/S OF ASPIRATION, PATIENT IS ASLEEP AT THIS TIME, DR. ZAVALA MADE AWARE.
--- NOTE | 2021-11-10 12:40 | NUR ---
RN NOTE PER RESPONSIBLE PART OSCAR MAJOR, PATIENT HAS NO HISTORY OF SEIZURE EPISODE.
[2021-11-10] MEDS: IV NS 0.9% 1,000 ML IV PRN (13:16)
[2021-11-10] MEDS ORDERED: ONDANSETRON HCL/PF 4 MG/2 ML VIAL IVP PRN (13:30)
[2021-11-10] MEDS ORDERED: Z GUARD REMEDY 2 OZ OINT TP PRN (13:30)
[2021-11-10] MEDS ORDERED: LORAZEPAM INJ 2 MG/ML VIAL IV PRN (13:30)
[2021-11-10] MEDS ORDERED: ACETAMINOPHEN 325 MG TABLET PO PRN (13:30)
[2021-11-10 16:00] VITALS: BP 115/71
--- NOTE | 2021-11-10 18:54 | NUR ---
RN NOTE PATIENT AWAKE IN BED, HX OF DEMENTIA ON NC @3LPM O2 SAT OF 98%, ON TELE MONITOR SR @ THIS TIME, SKIN INTACT, BED BOUND, INCONTINENT ON BOWEL AND BLADDER, NPO, LEFT HAND GAUGE 20 WITH NS @75CC/HR, ON SEIZURE PRECAUTION, FOR POSSIBLE EEG PER NEUROLOGIST, SAFETY MEASURES OBSERVED, BED WHEELS LOCK, SAFETY MEASURES OBSERVED, CALL LIGHT WITHIN REACH. WILL ENDORSE TO NOC SHIFT.
--- NOTE | 2021-11-10 19:37 | NUR ---
RN NOTE RECEIVED PATIENT IN BED, SLEEPING, AROUSABLE TO TOUCH AND NAME, NON-VERBAL AT THIS TIME. BREATHING EVEN AND UNLABORED. NO SOB NOTED. NOTED TO BE ON OXYGEN VIA NASAL CANNULA AT 3L/MIN. TOLERATING WELL. SKIN WARM AND DRY. NOTED WITH RIGHT HAND PERIPHERAL IV 20G, NO INFILTRATION NOTED. ON IVF NS AT 75 CC/HR. HOB ELEVATED 30 DEGREES. SEIZURE PRECAUTION OBSERVED. BED LOW, IN LOCKED POSITION. CALL LIGHT WITHIN REACH. Addendum: 11/10/21 at 1954 by VAIBHAV KUNZ RN WRONG ACCOUNT.
--- NOTE | 2021-11-10 19:55 | NUR ---
RN NOTE RECEIVED PATIENT IN BED, SLEEPING, AROUSABLE TO TOUCH AND NAME, NON-VERBAL AT THIS TIME. BREATHING EVEN AND UNLABORED. NO SOB NOTED. NOTED TO BE ON OXYGEN VIA NASAL CANNULA AT 3L/MIN. TOLERATING WELL. SKIN WARM AND DRY. NOTED WITH RIGHT HAND PERIPHERAL IV 20G, NO INFILTRATION NOTED. ON IVF NS AT 75 CC/HR. HOB ELEVATED 30 DEGREES. SEIZURE PRECAUTION OBSERVED. BED LOW, IN LOCKED POSITION. CALL LIGHT WITHIN REACH.
[2021-11-10 20:00] VITALS: BP 135/64
--- NOTE | 2021-11-10 20:00 | NUR ---
RN NOTE PERIPHERAL IV 20G IS ON RIGHT DORSAL HAND, NOT LEFT HAND.
[2021-11-11] VITALS: BP 141/73
[2021-11-11] MEDS: IV NS 0.9% 1,000 ML IV PRN (02:06)
[2021-11-11 04:00] VITALS: BP 137/70
--- NOTE | 2021-11-11 06:39 | NUR ---
RN NOTE NO EPISODE OF SEIZURE THROUGHOUT SHIFT. PATIENT SLEPT WELL THROUGH THE NIGHT. AROUSABLE TO TOUCH. STILL NON-VERBAL AT THIS TIME. TOLERATING LOW FLOW OXYGEN. NO SOB NOTED. PATIENT WITH EPISODE OF REMOVING NASAL CANNULA BUT REMAINED AT 94% OXYGEN SATURATION. SEIZURE PRECAUTIONS OBSERVED. KEPT CLEAN AND DRY. BED LOW, IN LOCKED POSITION, CALL LIGHT WITHIN REACH.
[2021-11-11 07:06] LABS: BASOPHILS % (AUTO) 0.3 % (0.0-2.0); EOSINOPHILS % (AUTO) 0.2 % (0.0-6.0); HEMATOCRIT 37 % (33-45); HEMOGLOBIN 12.5 g/dL (11.5-14.8); LYMPHOCYTES # (AUTO) 1.3 K/uL (0.8-4.8); LYMPHOCYTES % (AUTO) 18.2 % (20.0-44.0); MEAN CORPUSCULAR HGB CONC 34 g/dl (31.0-36.0); MEAN CORPUSCULAR VOLUME 94 fL (82-100); MONOCYTES # (AUTO) 0.5 K/uL (0.1-1.30); MONOCYTES % (AUTO) 7.3 % (2.0-12.0); NEUTROPHILS # (AUTO) 5.4 K/uL (1.8-8.9); PLATELET COUNT (AUTO) 187 K/uL (150-450); RED BLOOD CELL COUNT(AUTO) 3.94 MIL/uL (4.0-5.2); WHITE BLOOD COUNT (AUTO) 7.3 K/uL (4.3-11.0)
--- NOTE | 2021-11-11 07:10 | NUR ---
RN NOTE PATIENT IS IN BED WITH HOB AT SEMI FOWLERS POSITION. PATIENT IS ON ROOM AIR WITH NO SIGNS OF LABORED BREATHING. PATIENT IS AOX0. RHAND IV ACCESS IS PATENT AND INTACT. BED IS LOCKED IN THE LOWEST POSITION, 3 GUARD RAILS RAISED, CALL COFFEY WITHIN REACH, AND ALL HOSPITAL SAFETY PRECAUTIONS ARE BEING FOLLOWED. WILL CONTINUE TO MONITOR THROUGHOUT SHIFT.
[2021-11-11 07:29] LABS: ALBUMIN 3.3 g/dL (3.4-5.0); BILIRUBIN,TOTAL 0.7 mg/dL (0.2-1.0); CREATININE 0.6 mg/dL (0.6-1.3); MAGNESIUM 2.1 mg/dL (1.8-2.4); PHOSPHORUS 2.6 mg/dL (2.5-4.9); POTASSIUM 3.4 mmol/L (3.5-5.1); TOTAL PROTEIN, SERUM 6.4 g/dL (6.4-8.2)
[2021-11-11 08:00] VITALS: BP 135/82
[2021-11-11 08:20] LABS: THYROID STIMULATING HORMONE 0.362 uIU/mL (0.358-3.74)
[2021-11-11] MEDS: POTASSIUM CL. PREMIX PERIPHER. 50 ML IV SCH ×2 (10:14→11:36)
--- NOTE | 2021-11-11 13:31 | NUR ---
RN NOTE REPORT GIVEN TO LARRY MONTEIRO FOR DESHAUN. PATIENT CURRENTLY STABLE AT TIME OF TRANSFER.
--- NOTE | 2021-11-11 13:33 | NUR ---
RN NOTES RECEIVED BEDSIDE ENDORSEMENT FROM JONO SCHROEDER RN. PATIENT IN UNIT AT ROOM 325-1 VIA MARIANNA.
[2021-11-11 16:00] VITALS: BP 148/76
--- NOTE | 2021-11-11 18:51 | NUR ---
RN NOTES PATIENT IN BED AWAKE AND VERBALLY RESPONSIVE. BREATHING EVEN AND UNLABORED, ON ROOM AIR, NO RESPIRATORY DISTRESS. IV LINE INTACT AND PATENT, IVF OF NS AT 75CC/HR. B/L SOFT WRIST RESTRAINTS ON AT THIS TIME PATIENT CONTINUES TO STAND UP FROM BED. PATIENT IS A/O X1, CONFUSED, DIFFICULT TO REDIRECT; INCONTINENT. KEPT NPO AT THIS TIME PER ORDERS. SAFETY MEASURES MAINTAINED. WILL CONTINUE TO MONITOR.
--- NOTE | 2021-11-11 19:00 | NUR ---
WEAVER AXMINSTER OPENING NOTE RECEIVED PT IN BED, AWAKE AND RESTING. , NO SOB OR RESPIRATORY DISTRESS NOTED, NO C/O PAIN AT THIS TIME. RESPIRATIONS EVEN AND UNLABORED. IV ACCESS NOTED IN RIGHT HAND G# 22. . FALL AND SAFETY MEASURES IN PLACE AND MAINTAINED AT ALL TIMES. BED ALARM, BED IN LOW AND LOCKED POSITION, HOB ELEVATED TO SEMI FOWLERS POSITION, CALL LIGHT AND TABLE WITHIN REACH. SIDE RAILS UP X2. WILL CONTINUE WITH PLAN OF CARE.
[2021-11-11 20:00] VITALS: BP 152/97
[2021-11-12 06:51] LABS: BASOPHILS % (AUTO) 0.5 % (0.0-2.0); EOSINOPHILS % (AUTO) 0.2 % (0.0-6.0); HEMATOCRIT 38 % (33-45); HEMOGLOBIN 12.7 g/dL (11.5-14.8); LYMPHOCYTES # (AUTO) 1.1 K/uL (0.8-4.8); LYMPHOCYTES % (AUTO) 13.8 % (20.0-44.0); MEAN CORPUSCULAR HGB CONC 33 g/dl (31.0-36.0); MEAN CORPUSCULAR VOLUME 95 fL (82-100); MONOCYTES # (AUTO) 0.6 K/uL (0.1-1.30); MONOCYTES % (AUTO) 7.4 % (2.0-12.0); NEUTROPHILS % (AUTO) 78.1 % (43.0-81.0); PLATELET COUNT (AUTO) 213 K/uL (150-450); RED BLOOD CELL COUNT(AUTO) 4.02 MIL/uL (4.0-5.2); WHITE BLOOD COUNT (AUTO) 7.7 K/uL (4.3-11.0)
[2021-11-12 07:17] LABS: CALCIUM, SERUM 8.8 mg/dL (8.5-10.1); CREATININE 0.7 mg/dL (0.6-1.3); MAGNESIUM 1.9 mg/dL (1.8-2.4); PHOSPHORUS 2.7 mg/dL (2.5-4.9); POTASSIUM 3.4 mmol/L (3.5-5.1)
--- NOTE | 2021-11-12 07:30 | NUR ---
MS RN NOTES PATIENT IN BED AWAKE AND VERBALLY RESPONSIVE. BREATHING EVEN AND UNLABORED, ON ROOM AIR, NO RESPIRATORY DISTRESS. IV LINE ON LEFT AC #20 INTACT AND PATENT RUNNING IVF OF NS AT 75CC/HR. B/L SOFT WRIST RESTRAINTS ON AT THIS TIME PATIENT CONTINUES TO STAND UP FROM BED. PATIENT IS A/O X1, CONFUSED, INCONTINENT. NPO ORDERED. SAFETY MEASURES MAINTAINED. BED IN THE LOWEST POSITION AND LOCKED. SIDE RAILS UP X2. CALL LIGHT WITHIN REACH.WILL CONTINUE TO MONITOR.
[2021-11-12 08:09] VITALS: BP 114/71
[2021-11-12] MEDS: POTASSIUM CL. PREMIX PERIPHER. 50 ML IV SCH ×2 (11:35→13:11)
[2021-11-12 16:15] VITALS: BP 151/77
--- NOTE | 2021-11-12 18:48 | NUR ---
RN NOTE MD AT BEDSIDE, DID SIMPLE SWALLOW EVAL NO COUGHING DROOLING OR ASPIRATION NOTED. MD GAVE NEW ORDER FOR SPEECH EVAL AND PUREED DIET.
[2021-11-12 20:00] VITALS: BP 159/78
--- NOTE | 2021-11-13 06:32 | NUR ---
MS RN CLOSING NOTES PATIENT IN BED AWAKE AND VERBALLY RESPONSIVE. BREATHING EVEN AND UNLABORED, ON ROOM AIR, NO RESPIRATORY DISTRESS. IV LINE ON LEFT AC #20 INTACT AND PATENT RUNNING IVF OF NS AT 75CC/HR. B/L SOFT WRIST RESTRAINTS ON AT THIS TIME PATIENT CONTINUES TO STAND UP FROM BED AND TRYING TO REMOVE THE IV LINE. PATIENT IS A/O X1, CONFUSED, INCONTINENT. NPO ORDERED. SAFETY MEASURES MAINTAINED. BED IN THE LOWEST POSITION AND LOCKED. SIDE RAILS UP X2. CALL LIGHT WITHIN REACH.ALL DUE MEDS GIVEN ORDERED.WILL ENDORSE INCOMING SHIFT FOR DESHAUN..
[2021-11-13 07:04] LABS: BASOPHILS % (AUTO) 0.3 % (0.0-2.0); EOSINOPHILS % (AUTO) 0.4 % (0.0-6.0); HEMATOCRIT 37 % (33-45); HEMOGLOBIN 12.8 g/dL (11.5-14.8); LYMPHOCYTES # (AUTO) 1.2 K/uL (0.8-4.8); LYMPHOCYTES % (AUTO) 12.1 % (20.0-44.0); MEAN CORPUSCULAR HGB CONC 34 g/dl (31.0-36.0); MEAN CORPUSCULAR VOLUME 94 fL (82-100); MONOCYTES # (AUTO) 0.8 K/uL (0.1-1.30); MONOCYTES % (AUTO) 7.4 % (2.0-12.0); NEUTROPHILS # (AUTO) 8.1 K/uL (1.8-8.9); NEUTROPHILS % (AUTO) 79.8 % (43.0-81.0); PLATELET COUNT (AUTO) 217 K/uL (150-450); RED BLOOD CELL COUNT(AUTO) 3.96 MIL/uL (4.0-5.2); WHITE BLOOD COUNT (AUTO) 10.1 K/uL (4.3-11.0)
[2021-11-13 07:54] LABS: CALCIUM, SERUM 8.4 mg/dL (8.5-10.1); CARBON DIOXIDE 19 mmol/L (21-32); CHLORIDE 106 mmol/L (98-107); CREATININE 0.7 mg/dL (0.6-1.3); GLUCOSE 69 mg/dL (74-106); MAGNESIUM 1.9 mg/dL (1.8-2.4); PHOSPHORUS 2.7 mg/dL (2.5-4.9); POTASSIUM 3.4 mmol/L (3.5-5.1); SODIUM SERUM 141 mmol/L (136-145); UREA NITROGEN, BLOOD 18 mg/dL (7-18)
[2021-11-13 08:00] VITALS: BP 131/70
--- NOTE | 2021-11-13 08:11 | NUR ---
RN-NOTES RECEIVED PATIENT IN BED SLEEPING EASILY AROUSED,NO ACUTE DISTRESS NOTED. IV LINE AT L AC INTACT WITH ONGOING IV FLUID OF NS @75ML/HR,INFUSING WELL . WILL CONT. MONITORING.
[2021-11-13] MEDS ORDERED: LEVETIRACETAM (500MG) 1,000 MG in IV NS 0.9% 100 ML IV ONE (09:00)
[2021-11-13] MEDS ORDERED: POTASSIUM CHLORIDE 20 MEQ TAB.PRT.SR PO ONE (09:30)
--- NOTE | 2021-11-13 10:14 | NUR ---
RN-NOTES K-DUR 40 MEQ NOT GIVEN . PATIENT ON PUREED DIET. PHARMACY NOTIFIED.
[2021-11-13] MEDS: IV NS 0.9% 1,000 ML IV PRN (10:23)
[2021-11-13] MEDS ORDERED: POTASSIUM CHLORIDE 20 MEQ POWDER PACKET PO ONE (10:30)
[2021-11-13 16:00] VITALS: BP 128/73
[2021-11-13] MEDS: DIVALPROEX SODIUM 125 MG CAP.SPRINK PO SCH (16:25)
--- NOTE | 2021-11-13 18:39 | NUR ---
RN-CLOSING NOTES PATIENT LYING IN BED,INTERMITTENTLY SLEEPING A/OX1 NO ACUTE DISTRESS NOTED,WITH ONGOING IV FLUID OF NS @ 755ML/HR INFUSING WELL WELL TOLERATED. IV LINE ON L AC INTACT NO S/S OF COMPLICATION NOTED ON THE SITE.GOOD ANTOLIN CARE RENDERED.ALL NEEDS ATTENDED AND ANTICIPATED, BOTH SIDE RAIL UP,CALL LIGHT WITHIN REACH. WILL ENDORSE TO INCOMING NURSE FOR CONTINUITY OF CARE. Addendum: 11/13/21 at 1845 by TERE PRATER RN CORRECTION ON MY ABOVE NOTES FLUID NS @ 75ML/HR
[2021-11-13 21:01] VITALS: BP 127/65
[2021-11-13] MEDS: LEVETIRACETAM (250 MG) 250 MG TABLET PO SCH (21:11)
[2021-11-13] MEDS ORDERED: QUETIAPINE FUMARATE 100 MG TABLET PO SCH (22:00)
[2021-11-14] MEDS: IV NS 0.9% 1,000 ML IV PRN (03:23)
--- NOTE | 2021-11-14 07:00 | NUR ---
RN NOTES PT RESTING IN BED, EASILY AROUSABLE TO STIMULI, VERBALLY RESPONSIVE WITH CONFUSION. FREQUENT REORIENTATION PROVIDED. NO S/S OF PAIN NOTED. IV SITE: L-AC #20G INTACT/PATENT, ONGOING IVF OF NS @75ML/HR. WITH CELE.SOFT WRIST RESTRAINTS FOR SAFETY D/T PULLING OUT LINES/TUBINGS/DRESSINGS. SKIN/CIRCULATION WNL. RELEASES Q2HR AND MONITORED Q15MIN AND PRN FOR SAFETY. NO ACUTE EVENTS NOTED DURING THE SHIFT. SAFETY MEASURES MAINTAINED. ALL NEEDS ATTENDED TO.
--- NOTE | 2021-11-14 07:30 | NUR ---
MS RN OPENING NOTES RECEIVED PATIENT IN BED ASLEEP, EASILY AWAKEN BY VERBAL AND TACTILE STIMULI. BREATHING EVEN AND UNLABORED, ON ROOM AIR, NO RESPIRATORY DISTRESS. PATIENT IS A/O X1, CONFUSED, INCONTINENT. IV LINE ON LEFT AC #20 INTACT AND PATENT, ONGOING IVF OF NS AT 75CC/HR. B/L SOFT WRIST RESTRAINTS ON AT THIS TIME FOR SAFETY. SAFETY MEASURES IN PLACE: BED IN THE LOWEST POSITION AND LOCKED. SIDE RAILS UP X2. CALL LIGHT WITHIN REACH. WILL CONTINUE TO MONITOR ACCORDINGLY.
[2021-11-14 08:00] VITALS: BP 126/73
[2021-11-14 08:50] VITALS: BP 126/73
[2021-11-14 08:54] VITALS: BP 126/73
[2021-11-14] MEDS: DIVALPROEX SODIUM 125 MG CAP.SPRINK PO SCH (08:54)
[2021-11-14] MEDS: LEVETIRACETAM (250 MG) 250 MG TABLET PO SCH (08:54)
[2021-11-14] MEDS ORDERED: ASPIRIN EC 81 MG TABLET.DR PO SCH (09:00)
[2021-11-14] MEDS ORDERED: QUETIAPINE FUMARATE 25 MG TABLET PO SCH (09:00)
[2021-11-14] MEDS ORDERED: MIRTAZAPINE 15 MG TABLET PO SCH (09:00)
[2021-11-14] MEDS ORDERED: LISINOPRIL (10MG) 10 MG TABLET PO SCH (09:00)
[2021-11-14] MEDS ORDERED: LEVE250T2 PO (13:17)
--- NOTE | 2021-11-14 15:22 | NUR ---
FINANCIAL SERVICE REP NOTES DISCHARGED PATIENT IN GOOD CONDITION. VITAL SIGNS WITHIN NORMAL LIMITS. DISCHARGE INSTRUCTIONS AND FOLLOW UP DISCUSSED WITH PATIENT'S , VERBALIZED UNDERSTANDING. BELONGINGS ACCOUNTED AND SIGNED FOR. IV ACCESS REMOVED, COVERED WITH GAUZE, NO S/SX OF BLEEDING NOTED. ARMBAND REMOVED. WHEELED TO LOBBY SAFELY ACCOMPANIED BY JAMES). LEFT UNIT IN STABLE CONDITION. MD AND CHARGE NURSE AWARE OF DISCHARGE.
== END 2021-11-14 15:20 | disposition home or self-care (01) | DRG 101 ==
LOC: ER 07:46 → TELE1 11:42 → MEDSG1 11-11 10:12 → MED 11-11 14:48
PROVIDERS: ADMIT Internal Medicine; ATTEND Hospitalist
DX: R56.9 Unspecified convulsions (principal); G30.9 Alzheimer's disease, unspecified; F02.80 Dementia in other diseases classified elsewhere, unspecified severity, without behavioral disturbance, psychotic disturbance, mood disturbance, and anxiety; I10 Essential (primary) hypertension; Z20.822 Contact with and (suspected) exposure to COVID-19; Z86.73 Personal history of transient ischemic attack (TIA), and cerebral infarction without residual deficits; F32.A Depression, unspecified; F41.9 Anxiety disorder, unspecified; Z79.82 Long term (current) use of aspirin; Z79.899 Other long term (current) drug therapy; Z87.891 Personal history of nicotine dependence; Z88.0 Allergy status to penicillin
CPT/HCPCS: 36415; 70450-TC; 70551-TC; 71045-TC; 80048-TC; 80053-TC; 80076-TC; 81001; 83605-TC; 83735-TC; 84100-TC; 84443-TC; 84484-TC; 85025-TC; 85730-TC; 87040-TC; 87081-TC; 87086-TC; 92521; 92526; 97116-TC; 97530-TC; C9803; G0378; J1953; J3480; J7030; J7040; J7050

== ENCOUNTER 2022-10-15 14:26 | Inpatient (IN) | payer MEDICARE, BC ==
[~2022-10-15] VITALS: Ht 165.1 cm; Wt 52.2 kg
[~2022-10-15 14:26] MED LIST changes: -CIPR-262 PO; +LEVE250T2 PO; -METR500T PO
--- NOTE | 2022-10-15 14:30 | NUR ---
RECEIVED PT 76 YRS FEMALE FROM HOME BY HERNANDO FOR ALOC ACCOMPANY BY KAY AND COMBAT SYSTEMS OPERATOR NOT FALLOW COMMAND EYES CLOSED
--- NOTE | 2022-10-15 15:00 | NUR ---
SEEN BY DR ROMEO
[2022-10-15] MEDS ORDERED: MIRT-91 PO (15:13)
[2022-10-15] MEDS ORDERED: TRAZ-252 PO (15:13)
[2022-10-15] MEDS ORDERED: OLAN5TAB3 PO (15:13)
--- NOTE | 2022-10-15 15:57 | NUR ---
Timbo sididqi in [facility] - 10/15/22 at 1558 by RICHARD Core temperature taken; 1 to 1.9 F
--- NOTE | 2022-10-15 15:57 | NUR ---
Septic work-up done; UA sent
--- NOTE | 2022-10-15 15:58 | NUR ---
Core temperature 101.9 F
[2022-10-15] MEDS ORDERED: ACETAMINOPHEN 650 MG/SUPP.RECT RC ONE ×2 (16:00→16:26)
[2022-10-15] MEDS ORDERED: VANCOMYCIN 1 GM in IV D5W 250 ML IV ONE (16:00)
[2022-10-15] MEDS ORDERED: MEROPENEM 1 G in IV NS 0.9% 100 ML IV ONE (16:00)
--- NOTE | 2022-10-15 16:27 | NUR ---
MOVE SHEET SUBMITTED.
[2022-10-15 16:29] LABS: ALANINE AMINOTRANSFERASE 65 U/L (12-78); ALBUMIN 3.5 g/dL (3.4-5.0); ALCOHOL, BLOOD < 3 mg/dL (0-0); ALKALINE PHOSPHATASE 61 U/L (46-116); ASPARTATE AMINOTRANSFERASE 61 U/L (15-37); BILIRUBIN,DIRECT 0.2 mg/dL (0.0-0.2); BILIRUBIN,TOTAL 0.4 mg/dL (0.2-1.0); CARBON DIOXIDE 30 mmol/L (21-32); CHLORIDE 106 mmol/L (98-107); CREATININE 1.1 mg/dL (0.6-1.3); GLUCOSE 136 mg/dL (74-106); POTASSIUM 3.8 mmol/L (3.5-5.1); SODIUM SERUM 144 mmol/L (136-145); TOTAL PROTEIN, SERUM 7.9 g/dL (6.4-8.2); UREA NITROGEN, BLOOD 21 mg/dL (7-18)
[2022-10-15 16:47] LABS: BASOPHILS % (AUTO) 0.1 % (0.0-2.0); HEMATOCRIT 50 % (33-45); HEMOGLOBIN 16.2 g/dL (11.5-14.8); LYMPHOCYTES # (AUTO) 0.5 K/uL (0.8-4.8); LYMPHOCYTES % (AUTO) 4.1 % (20.0-44.0); MEAN CORPUSCULAR HGB CONC 32 g/dl (31.0-36.0); MEAN CORPUSCULAR VOLUME 94 fL (82-100); MONOCYTES # (AUTO) 0.8 K/uL (0.1-1.30); MONOCYTES % (AUTO) 6.5 % (2.0-12.0); NEUTROPHILS # (AUTO) 10.6 K/uL (1.8-8.9); NEUTROPHILS % (AUTO) 89.3 % (43.0-81.0); PLATELET COUNT (AUTO) 185 K/uL (150-450); RED BLOOD CELL COUNT(AUTO) 5.29 MIL/uL (4.0-5.2); WHITE BLOOD COUNT (AUTO) 11.9 K/uL (4.3-11.0)
[2022-10-15 16:53] LABS: BILIRUBIN,URINE NEGATIVE (NEGATIVE); COLOR,URINE YELLOW (YELLOW); LEUKOCYTE ESTERASE ,URINE NEGATIVE (NEGATIVE); NITRITE, URINE NEGATIVE (NEGATIVE); PH,URINE 5.5 (5.0-8.0); PROTEIN,URINE 2+ mg/dl (NEGATIVE); UGLUCOSE NEGATIVE (NEGATIVE); UROBILINOGEN,URINE 0.2 EU/dL (0.2)
[2022-10-15] MEDS ORDERED: IV NS 0.9% 1,000 ML BAG IV ONE (17:00)
--- NOTE | 2022-10-15 17:00 | NUR ---
MR. MORIAH KUMAR AT BED SIDE AND DIRECTOR SUPPLY LINDA
--- NOTE | 2022-10-15 18:01 | NUR ---
MICHELL GOODWIN SENT TO LAB
[2022-10-15 18:04] LABS: BACTERIA,URINE RARE /HPF (None Seen); SQUAMOUS EPITHELIAL CELL,UR 0-2 /HPF (None Seen); WBC,URINE 0-2 /HPF (0-3)
--- NOTE | 2022-10-15 18:54 | NUR ---
[facility] PAGED
[2022-10-15] MEDS ORDERED: MAG HYDROX/AL HYDROX/SIMETH 30 ML UDC PO PRN (19:30)
[2022-10-15] MEDS ORDERED: ONDANSETRON HCL/PF 4 MG/2 ML VIAL IVP PRN (19:30)
[2022-10-15] MEDS ORDERED: MAGNESIUM HYDROXIDE 30 ML UDC PO PRN (19:30)
[2022-10-15] MEDS ORDERED: ACETAMINOPHEN 325 MG TABLET PO PRN (19:30)
[2022-10-15] MEDS ORDERED: Z GUARD REMEDY 4 OZ OINT TP PRN (19:30)
--- NOTE | 2022-10-15 19:30 | NUR ---
HAND OFF MADHURI JUAREZ
--- NOTE | 2022-10-15 20:25 | NUR ---
UPDATED OSCAR () ON PT'S CONDITION
[2022-10-15] MEDS ORDERED: MEROPENEM 500 MG in IV NS 0.9% 50 ML IV SCH ×2 (21:00→22:00)
--- NOTE | 2022-10-15 22:05 | NUR ---
REPORT GIVEN TO RIN DE LA CRUZ RN FOR DESHAUN
--- NOTE | 2022-10-15 23:23 | NUR ---
PT TRANSFERRED TO [facility]IA [facility]OT[facility]OL. VSS. ALL BELONGINGS WITH PT.
--- NOTE | 2022-10-15 23:25 | NUR ---
RECEIVED PATIENT FROM ED VIA GURNEY. BREATHING EVEN AND UNLABORED. NO SOB NOTED. PATIENT PLACED ON TELE MONITOR WITH HR OF 75. PATIENT IS A/OX1. ON OXYGEN @ 4L/MIN VIA N/C WITH OXYGEN SATURATION OF 97%. HAS IV ACCESS ON RT WRIST. BODY CHECK DONE, NO WOUND. NO C/O PAIN OR DISCOMFORT AT THIS TIME. MARIN CATHETER IN PLACE. V/S FOLLOWS: BP 140/71, TEMP 99, RR, 19. ALL SAFETY MEASURES IN PLACE. BED LOCKED AND IN LOWEST POSITION. CALL LIGHT WITHIN REACH. HOB ELEVATED, SIDE RAILS UP X3, BED ALARM ON, WILL CONTINUE TO ASSESS AND MONITOR.
[2022-10-15] MEDS: IV NS 0.9% 1,000 ML IV PRN (23:43)
[2022-10-16 00:18] VITALS: BP 140/71
[2022-10-16] MEDS ORDERED: MEROPENEM 500 MG VIAL IV ONE (00:47)
[2022-10-16] MEDS: ENOXAPARIN SODIUM 40 MG/0.4 ML DISP.SYRIN SQ SCH ×2 (01:01→20:07)
[2022-10-16 06:55] LABS: BASOPHILS % (AUTO) 0.1 % (0.0-2.0); HEMATOCRIT 42 % (33-45); HEMOGLOBIN 13.7 g/dL (11.5-14.8); LYMPHOCYTES # (AUTO) 1.3 K/uL (0.8-4.8); MEAN CORPUSCULAR HGB CONC 33 g/dl (31.0-36.0); MEAN CORPUSCULAR VOLUME 95 fL (82-100); MONOCYTES # (AUTO) 0.8 K/uL (0.1-1.30); MONOCYTES % (AUTO) 6.4 % (2.0-12.0); NEUTROPHILS # (AUTO) 10.6 K/uL (1.8-8.9); NEUTROPHILS % (AUTO) 83.5 % (43.0-81.0); PLATELET COUNT (AUTO) 164 K/uL (150-450); RED BLOOD CELL COUNT(AUTO) 4.43 MIL/uL (4.0-5.2); WHITE BLOOD COUNT (AUTO) 12.7 K/uL (4.3-11.0)
--- NOTE | 2022-10-16 07:05 | NUR ---
PATIENT ASLEEP. BREATHING EVEN AND UNLABORED. NO SOB NOTED. PATIENT IS A/OX1. ON OXYGEN @ 4L/MIN VIA N/C WITH OXYGEN SATURATION OF 97%. HAS IV ACCESS ON RT WRIST INFUSING NS @ 75 ML/HR. MARIN CATHETER IN PLACE. ALL SAFETY MEASURES IN PLACE. BED LOCKED AND IN LOWEST POSITION. CALL LIGHT WITHIN REACH. HOB ELEVATED, SIDE RAILS UP X3, BED ALARM ON, WILL ENDORSE TO NEXT NURSE ON DUTY FOR CONTINUITY OF CARE.
[2022-10-16 07:47] LABS: POTASSIUM 3.8 mmol/L (3.5-5.1)
[2022-10-16] MEDS: VANCOMYCIN 500 MG in IV D5W 100ml IV SCH ×2 (07:50→20:06)
[2022-10-16 10:36] LABS: CALCIUM, SERUM 8.4 mg/dL (8.5-10.1); CREATININE 0.9 mg/dL (0.6-1.3); MAGNESIUM 2.2 mg/dL (1.8-2.4); PHOSPHORUS 2.4 mg/dL (2.5-4.9)
[2022-10-16] MEDS ORDERED: NEUTRA PHOS 1 POWD.PACKET PO ONE (12:00)
[2022-10-16] MEDS: ENSURE ENLIVE 237 ML LIQUID (VANILLA) PO SCH ×2 (12:57→16:46)
[2022-10-16] MEDS: MEROPENEM 1 G in IV NS 0.9% 100 ML IV SCH (13:14)
[2022-10-16] MEDS: IV NS 0.9% 1,000 ML IV PRN (17:18)
--- NOTE | 2022-10-16 19:00 | NUR ---
RN CLOSING NOTE PATIENT ASLEEP. BREATHING EVEN AND UNLABORED. NO SOB NOTED. PATIENT IS A/OX1. PATIENT ON OXYGEN @ 4L/MIN VIA N/C WITH OXYGEN SATURATION OF 97%. HAS IV ACCESS ON RT WRIST INFUSING NS @ 75 ML/HR. MARIN CATHETER IN PLACE. ALL SAFETY MEASURES IN PLACE. BED LOCKED AND IN LOWEST POSITION. CT CHEST X-RAY WITH CONTRAST CONSENT FORM OVER THE FORM FROM PATIENT'S TAKEN AND SIGNED MY 2 NURSES AND LORNA AND PLACED IN PATIENT'S CHART. CALL LIGHT WITHIN REACH. HOB ELEVATED, SIDE RAILS UP X3, BED ALARM ON, WILL ENDORSE TO SCRAP PILER NURSE ON DUTY FOR DESHAUN.
--- NOTE | 2022-10-16 19:30 | NUR ---
RN OPENING NOTE RECEIVED PT IN BED, AWAKE. PT IS A/O X 0, PT IS VERY CONFUSED AND SPEAKS INCOHERENTLY. CURRENTLY ON O2 VIA NC @ 4LPM. PT ABLE TO TOLERATE WELL, O2 SAT @ 96%. SR ON TELE MONITOR. NO S/SX OF ACUTE RESPI DISTRESS NOTED AT THIS TIME. NO SOB, BREATHING IS EVEN AND UNLABORED. IV ACCESS NOTED ON R WRIST, #20g, PATENT AND INTACT, INFUSING NS @ 75 CC/HR. MARIN CATHETER IN PLACE, DRAINING YELLOW COLORED URINE BY GRAVITY. ALL SAFETY MEASURES IN PLACE: BED LOCKED IN LOW POSITION, BED ALARM ON. SR UP X3, CALL LIGHT WITHIN REACH. WILL CONTINUE TO MONITOR T/O THE SHIFT.
[2022-10-16 20:00] VITALS: BP 177/79
[2022-10-16] MEDS: hydrALAZINE HCL IV 20 MG VIAL IV PRN (21:45)
--- NOTE | 2022-10-16 21:50 | NUR ---
RN NOTE PT HAS ELEVATED BP AT 177/79. TOOK 3X, STILL HIGH. NOTIFIED OIL WELL LOGGER MARGAUX DICK. ORDERED HYDRALAZINE 10 MG IV. CARRIED OUT ORDER. WILL CONTINUE TO MONITOR PT.
[2022-10-17] VITALS: BP 152/63
[2022-10-17] MEDS: MEROPENEM 1 G in IV NS 0.9% 100 ML IV SCH ×2 (01:13→13:03)
[2022-10-17 04:00] VITALS: BP 165/80
--- NOTE | 2022-10-17 05:16 | NUR ---
RN NOTE NO SIGNIFICANT CHANGE T/O THE SHIFT. PT STILL HAS ELEVATED BP. WITH PRN ORDER OF HYDRALAZINE WHEN SBP IS >170. OTHER VS STABLE. NO RESPI DISTRESS. NO SOB, NO PAIN. STILL CONFUSED AND TALKS INCOHERENTLY. DUE MEDS GIVEN. NEEDS ATTENDED TO. TURNED AND REPOSITIONED. ALL SAFETY MEASURES IN PLACE. WILL ENDORSE TO AM SHIFT NURSE FOR DESHAUN.
[2022-10-17 07:22] LABS: BASOPHILS % (AUTO) 0.1 % (0.0-2.0); EOSINOPHILS % (AUTO) 0.1 % (0.0-6.0); HEMATOCRIT 40 % (33-45); HEMOGLOBIN 13.1 g/dL (11.5-14.8); LYMPHOCYTES # (AUTO) 0.9 K/uL (0.8-4.8); LYMPHOCYTES % (AUTO) 10.5 % (20.0-44.0); MEAN CORPUSCULAR HGB CONC 33 g/dl (31.0-36.0); MEAN CORPUSCULAR VOLUME 94 fL (82-100); MONOCYTES # (AUTO) 0.5 K/uL (0.1-1.30); MONOCYTES % (AUTO) 6.5 % (2.0-12.0); NEUTROPHILS % (AUTO) 82.8 % (43.0-81.0); PLATELET COUNT (AUTO) 154 K/uL (150-450); RED BLOOD CELL COUNT(AUTO) 4.19 MIL/uL (4.0-5.2); WHITE BLOOD COUNT (AUTO) 8.5 K/uL (4.3-11.0)
[2022-10-17 08:00] VITALS: BP 159/80
[2022-10-17] MEDS: VANCOMYCIN 500 MG in IV D5W 100ml IV SCH ×2 (08:03→21:00)
[2022-10-17 08:04] LABS: CALCIUM, SERUM 7.8 mg/dL (8.5-10.1); CARBON DIOXIDE 31 mmol/L (21-32); CHLORIDE 111 mmol/L (98-107); CREATININE 0.5 mg/dL (0.6-1.3); GLUCOSE 89 mg/dL (74-106); MAGNESIUM 1.8 mg/dL (1.8-2.4); PHOSPHORUS 1.3 mg/dL (2.5-4.9); POTASSIUM 2.9 mmol/L (3.5-5.1); SODIUM SERUM 148 mmol/L (136-145); UREA NITROGEN, BLOOD 15 mg/dL (7-18)
[2022-10-17] MEDS: ENSURE ENLIVE 237 ML LIQUID (VANILLA) PO SCH ×3 (08:05→17:03)
[2022-10-17] MEDS ORDERED: POTASSIUM CHLORIDE 20 MEQ TAB.PRT.SR PO ONE (09:30)
[2022-10-17] MEDS: IV 1/2NS 1000 ML 1,000 ML IV SCH ×2 (10:06→23:47)
[2022-10-17] MEDS ORDERED: IOHEXOL-300 100 ML VIAL IV ONE (11:06)
[2022-10-17] MEDS ORDERED: CT SWABBABLE VALVE TRANS SET 1 EA INFUS.SET MC ONE (11:06)
[2022-10-17] MEDS ORDERED: IV NS 0.9% 250 ML IV ONE (11:07)
[2022-10-17 12:00] VITALS: BP 144/72
[2022-10-17] MEDS: POTASSIUM PHOSPHATE MM 7.5 MMOL in IV NS 0.9% 100 ML IV SCH ×2 (13:26→15:10)
[2022-10-17 16:00] VITALS: BP 131/65
--- NOTE | 2022-10-17 19:15 | NUR ---
RN CLOSING NOTE PATIENT ASLEEP. BREATHING EVEN AND UNLABORED. NO SOB NOTED. PATIENT IS A/OX1. PATIENT ON OXYGEN @ 4L/MIN VIA N/C WITH OXYGEN SATURATION OF 96-98%. HAS IV ACCESS ON LEFT FOREARM GAUGE #20 INFUSING 45%NS @ 75 ML/HR. MARIN CATHETER IN PLACE. ALL SAFETY MEASURES IN PLACE. BED LOCKED AND IN LOWEST POSITION. CT CHEST X-RAY WITH CONTRAST DONE TODAY AROUND NOON. CALL LIGHT WITHIN REACH. HOB ELEVATED, SIDE RAILS UP X3, BED ALARM ON, WILL ENDORSE TO GROCERY SHOPPER NURSE FOR DESHAUN.
--- NOTE | 2022-10-17 19:45 | NUR ---
RN NOTE RECEIVED PT CONFUSED. ON O2 AT 2L. NOT IN DISTRESS, SR ON TELE MONITOR WITH HR 80. IV ON LFA PATENT AND INTACT, 1/2 NS RUNNING AT 75ML/HR. MARIN CATH IN PLACE. ALL SAFETY MEASURES IN PLACE. WILL CONTINUE TO MONITOR.
[2022-10-17 20:00] VITALS: BP 141/55
[2022-10-17] MEDS: ENOXAPARIN SODIUM 40 MG/0.4 ML DISP.SYRIN SQ SCH (21:08)
[2022-10-18] VITALS (7 sets, daily range): BP systolic 127–202; BP diastolic 54–101
[2022-10-18] MEDS: MEROPENEM 1 G in IV NS 0.9% 100 ML IV SCH ×2 (00:09→12:10)
[2022-10-18] MEDS: hydrALAZINE HCL IV 20 MG VIAL IV PRN (06:35)
[2022-10-18] MEDS ORDERED: LORAZEPAM INJ 2 MG/ML VIAL ONE (06:38)
[2022-10-18 06:45] LABS: ABG BASE EXCESS -6.4 mmol/L; ABG OXYGEN SATURATION 99.6 % (92.0-98.5); ABG PCO2 32.4 mmHg (35.0-45.0); ABG PH 7.362 (7.350-7.450); AaDO2 154.6 mmHg; COHb 0.4 % (0.5-1.5); MetHb 0.4 % (0.0-1.5); O2Hb 98.8 % (94.0-97.0); SITE, ABG Right Radial; VENT MODE, BG NON REBREATHER
--- NOTE | 2022-10-18 06:57 | NUR ---
RN NOTE PT HAD SEIZURE. BECAME UNRESPONSIVE AND SHALLOW BREATHING. CALLED RAPID RESPONSE. ICU CHARGE NURSE SPOKE TO MD WITH NEW ORDERS. ATIVAN WAS GIVEN, ABG DONE AND RELAYED TO MD. O2 SAT WAS 95% ON 2L. PT VERY LETHARGIC, MD AWARE. NO ADDITIONAL ORDERS MADE. P
[2022-10-18] MEDS ORDERED: LORAZEPAM INJ 2 MG/ML VIAL IV ONE (07:00)
--- NOTE | 2022-10-18 07:30 | NUR ---
[employer] AM NOTE RECEIVED PT IN BED, SEDATED/ ASLEEP. PER PRODUCT SALES ENGINEER, RAPID RESPONSE CALLED ON HER DUE TO SEIZURE AND ELEVATED BP. RESPONDS TO DEEP PAIN. ON O2 VIA NC @ 2LPM. O2 SAT 98%. RESPIRATION UNLABORED. SR ON MONITOR. NO SIGNS OF PAIN/ DISCOMFORT. LFA G20 WITH 1/2 NS RUNNING AT 75 ML/HR. SITE CLEAR. INTACT SKIN. NO MARIN. REMOVED DUE TO LEAKING. ALL SAFETY MEASURES IN PLACE: BED LOCKED IN LOW POSITION, BED ALARM ON. SR UP X3, CALL LIGHT WITHIN REACH. WILL CONTINUE TO MONITOR.
--- NOTE | 2022-10-18 07:33 | NUR ---
RN NOTE CALLED PT , LEFT VOICEMAIL. ENDORSED TO AM SHIFT NURSE.
[2022-10-18 07:37] LABS: CALCIUM, SERUM 7.6 mg/dL (8.5-10.1); CREATININE 0.8 mg/dL (0.6-1.3)
[2022-10-18] MEDS: ENSURE ENLIVE 237 ML LIQUID (VANILLA) PO SCH ×3 (08:47→17:14)
[2022-10-18] MEDS: VANCOMYCIN 500 MG in IV D5W 100ml IV SCH ×2 (08:47→20:39)
--- NOTE | 2022-10-18 09:30 | NUR ---
RN NOTES DR. PÉREZ AT BEDSIDE. PT UNABLE TO EAT BREAKFAST AND PO MEDICATION. TOO SEDATED.
--- NOTE | 2022-10-18 10:30 | NUR ---
RN NOTES DR. PÉREZ NOTIFIED THAT PT IS TAKING KEPPRA 500MG BID.
[2022-10-18] MEDS ORDERED: POTASSIUM CHLORIDE 20 MEQ POWDER PACKET PO ONE (11:00)
[2022-10-18] MEDS ORDERED: LORAZEPAM 1 MG TABLET PO PRN (12:00)
[2022-10-18] MEDS: IV 1/2NS 1000 ML 1,000 ML IV SCH (12:11)
--- NOTE | 2022-10-18 12:15 | NUR ---
RN NOTES AT BEDSIDE. UPDATE GIVEN
[2022-10-18] MEDS: TRAZODONE 50 MG TABLET PO SCH (17:14)
[2022-10-18] MEDS: MIRTAZAPINE 15 MG TABLET PO SCH (17:15)
--- NOTE | 2022-10-18 17:15 | NUR ---
RN NOTES UNABLETO TAKE MEDICATIONS TOO LETHARGIC
--- NOTE | 2022-10-18 18:43 | NUR ---
FILM COLOR TESTER CLOSING NOTES PT RESTING IN BED, AWAKENS, RESPONDS TO TOUCH AND NAME, LETHARGIC, ON O2 VIA NC @ 2LPM. O2 SAT >98%. RESPIRATION UNLABORED. SR ON MONITOR. NO SIGNS OF PAIN/ DISCOMFORT. LFA G20 WITH 1/2 NS RUNNING AT 75 ML/HR. SITE CLEAR. INTACT SKIN. ON DIAPER FOR NOW. PUREED DIET WITH NTL PER SWALLOW EVAL. ALL SAFETY MEASURES IN PLACE: BED LOCKED IN LOW POSITION, BED ALARM ON. SR UP X3, CALL LIGHT WITHIN REACH. WILL ENDORSE TO NEXT SHIFT FOR DESHAUN ALL NEEDS MET FOR NOW. PM CARE DONE EARLIER. NO OTHER SIGNIFICANT CHANGE IN CONDITION.
[2022-10-18] MEDS: ENOXAPARIN SODIUM 40 MG/0.4 ML DISP.SYRIN SQ SCH (20:38)
[2022-10-18] MEDS: LEVETIRACETAM (250 MG) 250 MG TABLET PO SCH (20:42)
--- NOTE | 2022-10-18 20:52 | NUR ---
RN NOTE PT AWAKE. NOT IN ANY DISTRESS. ON O2 AT 2L. SR ON TELE MONITOR HR 95. DUE MEDS GIVEN. ALL SAFETY MEASURES IN PLACE. WILL CONTINUE TO MONITOR.
[2022-10-19] VITALS: BP 114/73
[2022-10-19] MEDS: MEROPENEM 1 G in IV NS 0.9% 100 ML IV SCH ×2 (00:20→12:03)
[2022-10-19] MEDS: IV 1/2NS 1000 ML 1,000 ML IV SCH (02:13)
[2022-10-19 04:00] VITALS: BP 118/73
--- NOTE | 2022-10-19 07:17 | NUR ---
RN OPENING NOTE RECEIVED PT IN BED, ASLEEP. RESPONDS TO DEEP PAIN. ON O2 VIA NC @ 2LPM. RESPIRATION UNLABORED.ON MONITOR. NO SIGNS OF PAIN/ DISCOMFORT. LFA G20 WITH 1/2 NS RUNNING AT 75 ML/HR ALL SAFETY MEASURES IN PLACE: BED LOCKED IN LOW POSITION, BED ALARM ON. SR UP X3, CALL LIGHT WITHIN REACH.
--- NOTE | 2022-10-19 07:18 | NUR ---
RN NOTE PT OPEN EYES TO STIMULI. NOT IN ANY DISTRESS. TOLERATING O2 AT 2L. NO SEIZURE EPISODE DURING SHIFT, ON SEIZURE PRECAUTION. VS STABLE. IV REMAIN PATENT AND INTACT, 1/2 NS RUNNING AT 75ML.HR. ALL SAFETY MEASURES REMAIN IN PLACE. FREQUENT MONITORING. ENDORSED TO HENRY FOR DESHAUN.
[2022-10-19 08:00] VITALS: BP 156/98
[2022-10-19 08:03] LABS: CARBON DIOXIDE 31 mmol/L (21-32); CHLORIDE 106 mmol/L (98-107); CREATININE 0.5 mg/dL (0.6-1.3); GLUCOSE 94 mg/dL (74-106); PHOSPHORUS 1.9 mg/dL (2.5-4.9); POTASSIUM 3.2 mmol/L (3.5-5.1); SODIUM SERUM 140 mmol/L (136-145); UREA NITROGEN, BLOOD 10 mg/dL (7-18)
[2022-10-19] MEDS: VANCOMYCIN 500 MG in IV D5W 100ml IV SCH (08:14)
[2022-10-19] MEDS: LEVETIRACETAM (250 MG) 250 MG TABLET PO SCH ×2 (08:15→20:44)
[2022-10-19] MEDS: OLANZAPINE 5 MG TABLET PO SCH (08:15)
[2022-10-19] MEDS: ENSURE ENLIVE 237 ML LIQUID (VANILLA) PO SCH ×3 (08:16→17:36)
[2022-10-19 08:18] LABS: BASOPHILS % (AUTO) 0.1 % (0.0-2.0); EOSINOPHILS % (AUTO) 1.6 % (0.0-6.0); HEMATOCRIT 34 % (33-45); HEMOGLOBIN 11.4 g/dL (11.5-14.8); LYMPHOCYTES # (AUTO) 1.1 K/uL (0.8-4.8); LYMPHOCYTES % (AUTO) 27.3 % (20.0-44.0); MEAN CORPUSCULAR HGB CONC 33 g/dl (31.0-36.0); MEAN CORPUSCULAR VOLUME 92 fL (82-100); MONOCYTES # (AUTO) 0.6 K/uL (0.1-1.30); MONOCYTES % (AUTO) 14.5 % (2.0-12.0); NEUTROPHILS # (AUTO) 2.4 K/uL (1.8-8.9); NEUTROPHILS % (AUTO) 56.5 % (43.0-81.0); PLATELET COUNT (AUTO) 169 K/uL (150-450); RED BLOOD CELL COUNT(AUTO) 3.72 MIL/uL (4.0-5.2); WHITE BLOOD COUNT (AUTO) 4.2 K/uL (4.3-11.0)
[2022-10-19] MEDS ORDERED: POTASSIUM CHLORIDE 20 MEQ TAB.PRT.SR PO ONE (10:00)
[2022-10-19] MEDS: POTASSIUM PHOSPHATE MM 7.5 MMOL in IV NS 0.9% 100 ML IV SCH ×2 (11:16→14:41)
[2022-10-19 12:00] VITALS: BP 139/74
[2022-10-19 16:00] VITALS: BP 122/57
[2022-10-19] MEDS: MIRTAZAPINE 15 MG TABLET PO SCH (17:35)
[2022-10-19] MEDS: TRAZODONE 50 MG TABLET PO SCH (17:36)
--- NOTE | 2022-10-19 18:48 | NUR ---
RN CLOSING NOTES PT RESTING IN BED, AWAKENS, RESPONDS TO TOUCH AND NAME, LETHARGIC, ON O2 VIA NC @ 2LPM. . RESPIRATION UNLABORED. SR ON MONITOR. NO SIGNS OF PAIN/ DISCOMFORT. LFA G20 WITH 1/2 NS RUNNING AT 75 ML/HR. SITE CLEAR. INTACT SKIN. ON DIAPER FOR NOW. ALL SAFETY MEASURES IN PLACE: BED LOCKED IN LOW POSITION, BED ALARM ON. SR UP X3, CALL LIGHT WITHIN REACH. WILL ENDORSE TO NEXT SHIFT FOR DESHAUN
[2022-10-19 20:00] VITALS: BP 134/69
--- NOTE | 2022-10-19 20:30 | NUR ---
RN NOTE PT AWAKE, CONFUSED. ON O2 AT 2L, NO SIGNS OF DISTRESS NOTED. SR ON TELE MONITOR HR 73. IV ON LFA PATENT AND INTACT. ALL SAFETY MEASURES IN PLACE. WILL CONTINUE TO MONITOR
[2022-10-19] MEDS: VANCOMYCIN HCL 0.75 GM in IV D5W 250 ML IV SCH (20:43)
[2022-10-19] MEDS: ENOXAPARIN SODIUM 40 MG/0.4 ML DISP.SYRIN SQ SCH (20:48)
[2022-10-20] VITALS: BP 147/70
[2022-10-20] MEDS: MEROPENEM 1 G in IV NS 0.9% 100 ML IV SCH ×2 (00:38→11:47)
[2022-10-20 04:00] VITALS: BP 155/80
--- NOTE | 2022-10-20 07:22 | NUR ---
RN NOTE PT OPEN EYES TO STIMULI. NOT IN ANY DISTRESS. TOLERATING O2 AT 2L. NO SEIZURE EPISODE DURING SHIFT, OBSERVED SEIZURE PRECAUTION. NEW IV LINE INSERTED ON RFA 20G, GOOD BLOOD RETURN, FLUSHES WELL. REMAIN AFEBRILE. ALL SAFETY MEASURES REMAIN IN PLACE. FREQUENT MONITORING. ENDORSED TO SHERI FOR DESHAUN.
[2022-10-20 07:30] LABS: CALCIUM, SERUM 7.9 mg/dL (8.5-10.1); CARBON DIOXIDE 32 mmol/L (21-32); CHLORIDE 105 mmol/L (98-107); CREATININE 0.5 mg/dL (0.6-1.3); GLUCOSE 90 mg/dL (74-106); POTASSIUM 3.6 mmol/L (3.5-5.1); SODIUM SERUM 142 mmol/L (136-145); UREA NITROGEN, BLOOD 11 mg/dL (7-18)
[2022-10-20 08:00] VITALS: BP 158/81
--- NOTE | 2022-10-20 08:00 | NUR ---
POSTING CLERK NOTE PT IN BED ALERT WITH CONFUSION . TOLERATING O2 AT 2L. NO SOB NOTED AT THIS TIME OR NO SEIZURE EPISODE AT THIS TIME , ON TELE MONITOR SR HR 80 AT THIS TIME, PATIENT TRYING TO GET OUT OFF BED ,BED ALARM IS ON ,SAFETY MEASURE IMPLEMENTED, BED IN LOWEST AND LOCKED POSITION, WILL CONT TO MONITOR
[2022-10-20] MEDS: OLANZAPINE 5 MG TABLET PO SCH (08:27)
[2022-10-20] MEDS: LEVETIRACETAM (250 MG) 250 MG TABLET PO SCH (08:27)
[2022-10-20] MEDS: VANCOMYCIN HCL 0.75 GM in IV D5W 250 ML IV SCH (08:29)
[2022-10-20] MEDS: ENSURE ENLIVE 237 ML LIQUID (VANILLA) PO SCH ×2 (08:32→12:08)
[2022-10-20] MEDS ORDERED: MERO1VIA23 IV (10:22)
--- NOTE | 2022-10-20 11:09 | NUR ---
agent telegrapher note covid19 test done @10:50, per order for discharge/transfer pt to [facility].
--- NOTE | 2022-10-20 11:23 | NUR ---
ms rn note pt at bedside able to sit at edge of bed
--- NOTE | 2022-10-20 11:51 | NUR ---
rn note report given to melisa payne from [facility]
--- NOTE | 2022-10-20 12:01 | NUR ---
ms rn note called to dr small notified that patient has rashes on back ,on merren .still ok to discharge to [facility]
--- NOTE | 2022-10-20 13:47 | NUR ---
ms rn note ambulance arrived ,report given
[2022-10-20 13:49] VITALS: BP 129/81
--- NOTE | 2022-10-20 13:49 | NUR ---
ms rn note pt discharged to [facility], taken by paramedics in stable condition. patients saline lock left in place [facility], pt needs continue antibiotics.
== END 2022-10-20 14:10 | DRG 871 ==
LOC: ER 14:28 → TELE1 21:29 → MEDSG1 10-20 10:07
PROVIDERS: ADMIT Internal Medicine; ATTEND Internal Medicine
DX: A41.9 Sepsis, unspecified organism (principal); G93.41 Metabolic encephalopathy; J96.01 Acute respiratory failure with hypoxia; N17.0 Acute kidney failure with tubular necrosis; J15.6 Pneumonia due to other Gram-negative bacteria; J69.0 Pneumonitis due to inhalation of food and vomit; F02.84 Dementia in other diseases classified elsewhere, unspecified severity, with anxiety; E87.0 Hyperosmolality and hypernatremia; G30.9 Alzheimer's disease, unspecified; G40.909 Epilepsy, unspecified, not intractable, without status epilepticus; I10 Essential (primary) hypertension; Z88.0 Allergy status to penicillin; Z79.82 Long term (current) use of aspirin; Z79.899 Other long term (current) drug therapy; Z87.891 Personal history of nicotine dependence; E86.1 Hypovolemia; F12.20 Cannabis dependence, uncomplicated; D69.6 Thrombocytopenia, unspecified; Y95 Nosocomial condition; F29 Unspecified psychosis not due to a substance or known physiological condition; R29.6 Repeated falls
CPT/HCPCS: 36415; 36600; 70450-TC; 71045-TC; 71260-TC; 80048-TC; 80076-TC; 80202-TC; 81001; 82803-TC; 82962-TC; 83605-TC; 83735-TC; 84100-TC; 84439-TC; 84443-TC; 84481; 84484-TC; 85025-TC; 87040-TC; 87081-TC; 92521; 92526; 92611-TC; 94799-TC; 97112-TC; 97530-TC; C9803; G0378; G0480; J0360; J1650; J2060; J2185; J3370; J3490; J7030; J7050; J7060; Q9967; U0003